=== PATIENT | female | born 1960 | race Caucasian/White ===

== ENCOUNTER → 2017-10-05 | Day surgery (SDC) | payer OTHER ==
[~2017-10-05] VITALS: Ht 157.5 cm; Wt 59.0 kg
--- NOTE | 2017-10-05 14:46 | Operative Report ---
Operative/Inv Procedure Report Surgery Date: 10/05/17 Name of Procedure: Fluoroscopic guided insertion of tunneled Port-A-Cath via right subclavian vein Pre-Operative Diagnosis: Rectal cancer Post-Operative Diagnosis: Same Estimated Blood Loss: scant Surgeon/Psychologist Counseling: Deng TAVERA,Jovanny Mcnulty Anesthesia: local monitored anesthesi Operative/Procedure Note Note: With the patient supine on the OR table, right arm tucked, head not turned, after induction of MAC sedation, the patient's right subclavian area, including the shoulder neck and contralateral chest, were prepped and draped in the usual sterile fashion. After injecting local anesthetic in the right infraclavicular area, skin, subcutaneous to the clavicle, and inferiorly where the pocket will be, the patient was repositioned to Trendelenburg. Putting your right index finger on the sternal notch and thumb pressing down lateral to the curve of the clavicle, I made a puncture through the skin with the 15 blade scalpel next to thumb. Then along that line towards the tip of your finger, advance a large- bore needle, bevel towards the feet, on a slip tip 10 mL syringe barrel flat against the deltoid, advancing to bone and then "walking" it down just under the clavicle keeping the needle flat as possible, while maintaining vacuum with the plunger, accessing the subclavian venous blood, then replacing the syringe with a wire, sliding in with minimum resistance, confirming the position with the C- arm fluoroscope, making sure the wire is traveling down along the cava towards the right side of the heart and not up or across, and no ectopy. Next I secured the wire to the drape, measured (approximately 23 cm), cut and attached the catheter to the port. Approximately 3-4 cm inferior to the stick site a 2-1/2 cm long skin incision was made with a 15 blade scalpel along Langers lines. It was deepened with cautery and a space was developed inferiorly under the subcutaneous layer. The Port-A-Cath was laid in there and secured in [address] with 2-0 Prolene through the holes in the port, the sutures were kept loose on snaps at this point. Next the catheter was tunneled up subcutaneously with a snap and brought out through the stick site next to the wire. Then the dilator only, was passed over the wire until you could feel it slide under the clavicle, then removed, then re-advanced this time with the peel-away sheath over it, while advancing simultaneously pull the dilator out and advance the sheath, eventually pulling out the dilator and wire completely. Then the catheter was put into the sheath as far as it'll go then while holding that knuckle down with DeBakey's, gently peel-away the sheath with your psychological assistant. Now the correct position of the catheter was confirmed with the fluoroscope, using a Hsieh needle and heparinized saline solution, the catheter was first aspirated then flushed with approximately 3 mL's, with minimal resistance. The patient was repositioned to neutral, after tying down the 2 Prolenes, the larger incision was closed in layers, 3-0 Vicryl deep and 4-0 subcuticular Monocryl for the skin, and one subcuticular Monocryl for the stick site. Both areas were covered with Mastisol Steri-Strips Telfa and Tegaderm. Chest x-ray was ordered to be done in the recovery room. Lap and sponge counts were correct. Wound expectancy was clean, IV fluids crystalloid, complications none, patient tolerated the procedure well was awakened and returned to the recovery room in satisfactory condition.
--- NOTE | 2017-10-05 14:59 | RADIOLOGY REPORT ---
EXAMINATION: XR PORTABLE CHEST CLINICAL INFORMATION: Status post right Port-A-Cath insertion. Rule out pneumothorax. COMPARISON: Chest x-ray dated 07/17/2017. TECHNIQUE: Portable AP semierect view of the chest was obtained. FINDINGS: EKG leads overlie the chest. There is a right subclavian Port-A-Cath in place with tip at the cavoatrial junction. The cardiomediastinal silhouette is within normal limits in size. Lungs bilaterally are symmetrically expanded and clear. No focal consolidation, effusion or pneumothorax is seen. Mild degenerative changes as seen in the right glenohumeral joint. IMPRESSION: 1. Port-A-Cath in place with tip at the cavoatrial junction. 2. No pneumothorax.
--- NOTE | 2017-10-05 21:06 | RADIOLOGY REPORT ---
EXAMINATION: FL OR PORT-A-CATH INSERTION CLINICAL INFORMATION: Right-sided Port-A-Cath placement. COMPARISON: Chest radiograph 07/17/2017. TECHNIQUE: Intraoperative fluoroscopic guidance provided for right chest port catheter placement by Dr. Vilchis. FINDINGS: Right chest port placement via the subclavian approach. Fluoroscopy Time: 0.01 minutes. Total number of images: 2. IMPRESSION: Intraoperative fluoroscopic guidance provided for right chest port placement. Refer to the operative notes for details.
== END ==
LOC: STS 02:43
DX: C20 Malignant neoplasm of rectum (principal); Z80.0 Family history of malignant neoplasm of digestive organs; K29.80 Duodenitis without bleeding; Z96.643 Presence of artificial hip joint, bilateral; Z87.891 Personal history of nicotine dependence
CPT/HCPCS: 71045; 76000; C1751; J0131; J0690; J1644; J2250

== ENCOUNTER 2017-11-03 15:23 | Inpatient (IN) | payer OTHER ==
[~2017-11-03] VITALS: Ht 157.5 cm; Wt 57.9 kg
[2017-11-03 15:49] LABS: ABSOLUTE BASOPHIL COUNT 0 /CUMM (0.0-0.2); ABSOLUTE EOSINOPHIL COUNT 0.1 /CUMM (0.0-0.7); ABSOLUTE GRANULOCYTE CT 4.8 /CUMM (1.4-6.5); ABSOLUTE LYMPH COUNT 0.6 /CUMM (1.2-3.4); ABSOLUTE MONOCYTE COUNT 1.2 /CUMM (0.10-0.60); BASOPHIL % 0.3 % (0.0-2.0); GRANULOCYTE % 71.2 % (42.2-75.2); HEMATOCRIT 35.2 % (37-47); MEAN CORPUSCULAR HGB 32.6 PG (27.0-31.0); MEAN CORPUSCULAR HGB CONC 34.8 G/DL (33.0-37.0); MEAN CORPUSCULAR VOLUME 93.6 FL (81.0-99.0); PLATELET COUNT 566 /CUMM (130-400); RBC DISTRIBUTION WIDTH 19.9 % (11.5-14.5); RED BLOOD CELL CT 3.76 /CUMM (4.20-5.40); WHITE BLOOD CELL COUNT 6.8 /CUMM (4.8-10.8)
--- NOTE | 2017-11-03 16:17 | ED GENERAL ADULT ---
History of Present Illness General Chief Complaint: General Adult Stated Complaint: SENT BY SOFÍA FOR EVAL Source: patient Exam Limitations: no limitations Vital Signs & Intake/Output Vital Signs & Intake/Output Vital Signs Date Time Temp Pulse Resp B/P B/P Pulse O2 O2 Flow FiO2 Mean Ox Delivery Rate 11/03 1533 97.4 86 16 100/68 98 Room Air Allergies Coded Allergies: sulfamethoxazole (From ) (rash 10/02/17) trimethoprim (From ) (rash 10/02/17) Triage Note: PT STATES SHE HAD COLARECTAL CA AND HAD IT REMOVED. PT WENT TO SEE DR. GORE AND HAD BW DONE AND WAS TOLD TO COME TO ED BECAUSE HER BLOOD COUNTS ARE OFF. PT DENIES FEVER/CHILLS OR BODYACHES. Triage Nurses Notes Reviewed? yes Onset: Gradual Duration: day(s): Timing: recent history HPI: 57 year old female sent to the Emergency Department for abnormal labs. She has a history of colerectal CA and is followed by Dr. Medellin. She has had an illieostomy. She denies chest pain, abdominal pain and shortness of breath. Past History Travel History Traveled to [place] past 21 day No Medical History Any Pertinent Medical History? 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 Yes Review of Systems Review of Systems Constitutional: Reports: see HPI. Denies: fever. EENTM: Reports: no symptoms. Denies: double vision, eye pain. Respiratory: Reports: no symptoms. Denies: short of breath. Cardiovascular: Reports: no symptoms. Denies: chest pain. GI: Reports: no symptoms. Denies: abdominal pain. Genitourinary: Reports: no symptoms. Musculoskeletal: Reports: no symptoms. Skin: Reports: no symptoms. Neurological/Psychological: Reports: no symptoms. Hematologic/Endocrine: Reports: no symptoms. Immunologic/Allergic: Reports: no symptoms. All Other Systems: Reviewed and Negative Physical Exam Physical Exam General Appearance: alert, awake, anxious, mild distress Head: atraumatic, normal appearance Eyes: Bilateral: normal appearance, PERRL, EOMI. Ears, Nose, Throat: normal ENT inspection Neck: normal inspection Cardiovascular: regular rate/rhythm Peripheral Pulses: 4+ radial (R), 4+ radial (L) Gastrointestinal: soft, non-tender, functioning ileostomy Back: normal range of motion Extremities: normal inspection Neurologic/Psych: awake, alert, oriented x 3 Skin: intact, normal color, warm/dry Core Measures ACS in differential dx? No CVA/TIA Diagnosis: No Sepsis Present: No Sepsis Focused Exam Completed? No Progress Differential Diagnoses I considered the following diagnoses in my evaluation of the patient: [ Hyponatremia, electrolyte derangement, anemia, common bile duct stone, metastatic disease] Plan of Care: Orders Procedure Date/time Status LACTIC ACID 11/03 1832 Active URINALYSIS 11/03 1532 Active LIPASE 11/03 1532 Complete LACTIC ACID 11/03 1532 Complete COMPREHENSIVE METABOLIC PANEL 11/03 1532 Complete CBC WITHOUT DIFFERENTIAL 11/03 1532 Complete EKG 11/03 1532 Active Laboratory Tests 11/03/17 1540: Anion Gap 21 H, Estimated GFR 18 L, BUN/Creatinine Ratio 26.3 H, Glucose 134 H, Lactic Acid 3.2 H, Calcium 9.3, Total Bilirubin 2.0 H, AST 63 H, ALT 67 H , Alkaline Phosphatase 130 H, Total Protein 7.6, Albumin 5.0, Globulin 2.6, Albumin/Globulin Ratio 1.9, Lipase 406 H, CBC w Diff NO MAN DIFF REQ, RBC 3.76 L, MCV 93.6, MCH 32.6 H, MCHC 34.8, RDW 19.9 H, MPV 7.0 L, Gran % 71.2, Lymphocytes % 9.3 L, Monocytes % 18.2 H, Eosinophils % 1.0, Basophils % 0.3, Absolute Granulocytes 4.8, Absolute Lymphocytes 0.6 L, Absolute Monocytes 1.2 H, Absolute Eosinophils 0.1, Absolute Basophils 0 Initial ED EKG: NSR Prior EKG: unchanged Departure Departure Disposition: STILL A PATIENT Condition: Stable Clinical Impression Primary Impression: ASTON (acute kidney injury) Secondary Impressions: Hyponatremia Referrals: Mignon TAVERA,Eliana Yee (PCP/Family) Departure Forms: Customer Survey General Discharge Information Admission Note Spoke With: Recinos MD,Paul Documentation of Exam: Documentation of any treatments & extenuating circumstances including Concerns Regarding Discharge (functional status, medication knowledge or non-compliance, living conditions, etc.) that warrant an admission rather than observation: [The patient needs admission for IV fluids, consider nephrology consultation, monitoring for seizures, neuro evaluations every 6 hours] Critical Care Note Critical Care Note Critical Care Time: non-applicable
--- NOTE | 2017-11-03 18:24 | History & Physical ---
Ayden TAVERA,Niurka 11/03/17 1823: General Information and HPI MD Statement: I have seen and personally examined JONATHAN HENDERSON and documented this H&P. The patient is a 57 year old F who presented with a patient stated chief complaint of [SENT BY FOR ABNORMAL LABS]. Source of Information: patient, old records, EMS Exam Limitations: no limitations History of Present Illness: Patient is a 57 YO F with PMH of locally advanced rectal adenocarcinoma s/p RT f /b anterior resection and coloanal anastomosis at [place] this august, port - A - cath August 2017, on chemotherapy (xaledo), anxiety, OA requiring bilateral hip replacement presented to [facility] after being sent by for abnormal labs. Patient started experiencing lightheadedness dizziness for the past week, more pronounced today. She couldn't recall any syncopal episodes but reports possibly had an episode during the weekend. She went to Dr. Gonzales office where she had the lab work. Due to concern of low-sodium redirected her to ER. During my interview she is A&O 3 and reports several episodes of vomiting today. She is not experiencing any episodes of increased bowel movements however stool in her ileostomy bag is very loose. She reports drinking a lot of for free water lately due to lightheadedness. She often experiences chest pain and shortness of breath during episodes of anxiety (panic attacks). She is very anxious during my interview and reports back pain since a couple of weeks for which she is taking Tylenol. She denies any abdominal pain, chest pain, shortness of breath. Allergies Septra Meds Prochlorperazine Diazepam Xaledo Family mother with pancreatic cancer father - ruptured brain aneurysm Social Quit smoking/alcohol long ago No drug abuse Surgical hip replacement anterior resection and coloanl anastomosis, ileostomy bag placement - august 10 2017 Allergies/Medications Allergies: Coded Allergies: sulfamethoxazole (From SEPTRA) (rash 10/02/17) trimethoprim (From SEPTRA) (rash 10/02/17) Home Med list Diazepam (Valium) 5 MG TABLET 1 TAB PO BIDP PRN anxiety (Reported) Prochlorperazine Maleate 10 MG TABLET 1 TAB PO Q6 PRN nausea (Reported) Compliance With Home Meds: FAIR Past History Travel History Traveled to [place] past 21 day No Medical History Neurological: NONE EENT: NONE Cardiovascular: NONE Respiratory: NONE Gastrointestinal: NONE Hepatic: NONE Renal: NONE Musculoskeletal: NONE Psychiatric: NONE Endocrine: NONE Blood Disorders: NONE Cancer(s): 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 Home Who Do You Live With? self Services at Home: None Smoking Status: Former Smoker ETOH Use: denies use Illicit Drug Use: denies illicit drug use Functional Ability ADLs Independent: dressing, eating, toileting, bathing. Ambulation: independent IADLs Independent: shopping, housework, finances, food prep, telephone, transportation , medication admin. Review of Systems Review of Systems Constitutional: Reports: see HPI. Exam & Diagnostic Data Last 24 Hrs of Vital Signs/I&O Vital Signs Date Time Temp Pulse Resp B/P B/P Pulse O2 O2 Flow FiO2 Mean Ox Delivery Rate 11/03 1748 97 Room Air 11/03 1533 97.4 86 16 100/68 98 Room Air Intake & Output 11/03 1600 11/03 0800 11/03 0000 Intake Total Output Total Balance Patient 54.431 kg Weight Weight Reported by Patient Measurement Method Physical Exam General Appearance Alert, Oriented X3, Cooperative, No Acute Distress Skin No Rashes, No Breakdown Skin Temp/Moisture Exam: Warm/Dry Sepsis Skin Exam (color): Normal for Ethnicity HEENT Atraumatic, PERRLA, EOMI Neck Supple, No JVD Cardiovascular Regular Rate, Normal S1, Normal S2 Lungs Clear to Auscultation, Normal Air Movement Abdomen Normal Bowel Sounds, Soft, No Tenderness Neurological Normal Gait, Normal Speech, Strength at 5/5 X4 Ext, Normal Tone, Sensation Intact, Cranial Nerves 3-12 NL Extremities No Clubbing, No Cyanosis, No Edema Vascular Normal Pulses Body Front and Back (Adult) 1) ileostomy bag Last 24 Hrs of Labs/Reji: Laboratory Tests 11/03/171947: Lactic Acid 1.6 11/03/171947: Anion Gap 16, Estimated GFR 22 L, BUN/Creatinine Ratio 27.4 H 11/03/17 1730: Urine Color YEL, Urine Clarity HAZY H, Urine pH 6.0, Ur Specific [place] 1.025, Urine Protein TRACE H, Urine Ketones NEG, Urine Nitrite NEG, Urine Bilirubin NEG, Urine Urobilinogen 0.2, Ur Leukocyte Esterase MOD H, Ur Microscopic SEDIMENT EXAMINED, Urine RBC RARE, Urine WBC 5-10 H, Ur Epithelial Cells FEW, Urine Bacteria FEW H, Hyaline Casts RARE H, Urine Mucus RARE, Urine Hemoglobin SMALL H, Urine Glucose NEG 11/03/17 1730: Urine Osmolality 406, Ur Random Creatinine 139.6, Ur Random Sodium < 5 L, Ur Random Potassium 37.7, Fraction Sodium Excret 0.1 11/03/17 1540: Anion Gap 21 H, Estimated GFR 18 L, BUN/Creatinine Ratio 26.3 H, Glucose 134 H, Serum Osmolality 268 L, Lactic Acid 3.2 H, Uric Acid 10.8 H, Calcium 9.3, Total Bilirubin 2.0 H, AST 63 H, ALT 67 H, Alkaline Phosphatase 130 H, Total Protein 7.6, Albumin 5.0, Globulin 2.6, Albumin/Globulin Ratio 1.9, Lipase 406 H, TSH 2.020, Free T4 1.64, CBC w Diff NO MAN DIFF REQ, RBC 3.76 L, MCV 93.6, MCH 32.6 H, MCHC 34.8, RDW 19.9 H, MPV 7.0 L, Gran % 71.2, Lymphocytes % 9.3 L, Monocytes % 18.2 H, Eosinophils % 1.0, Basophils % 0.3, Absolute Granulocytes 4.8, Absolute Lymphocytes 0.6 L, Absolute Monocytes 1.2 H, Absolute Eosinophils 0.1, Absolute Basophils 0 Microbiology 11/03 2022 URINE ROUT: Urine Culture - RECD 11/03 1833 UPPER RESP: Surveillance Culture - COLB 11/03 1833 GI: Surveillance Culture - COLB Diagnostic Data EKG Results NSR Assessment/Plan Assessment: Patient is a 57-year-old middle-aged female with significant history of locally advanced rectal carcinoma status post resection and ileostomy, currently on chemotherapy with xaledo presented to ER after found to have abnormal labs. Patient has been experiencing lightheadedness and dizziness for the past 1 week, has been drinking lots of free water. She also found to have several episodes of vomiting today. Denies any increase in output from the colostomy bag however loose stools due to no colonic rebsorbption. Vital signs and physical examination presentation unremarkable. Labs did show sodium of 112, potassium 3.8, BUN 71, creatinine 2.7, ratio 26.3. Serum was him to 68, urinalysis and 406, urine sodium less than 5. Normal TSH and free T4. Platelet count 566. Renal ultrasound unremarkable. Differential Hypovolemic hypotonic hyponatremia, with appropriate ADH elevation. Patient sustained a ASTON and lactic acidosis likely secondary to dehydration. Patient does not look dehydrated. Last lab work in July 2017 with sodium of 141, this is likely acute in onset. We will check cortisol in a.m. Problem list 1. Hypotonic hypovolemic hyponatremia -112 at presentation 2. ASTON - BUN/creatinine ratio 26 likely prerenal 3. Lactic acidosis likely secondary to dehydration 4. Elevated lipase likely from vomiting 5. History of locally advanced rectal carcinoma s/p anterior resection with ileostomy bag in situ 6. Anxiety Admit to ICU for closer monitoring of labs and neurochecks Hypotonic hypovolemic hyponatremia - asymptomatic Likely Acute from dehydration and excessive free water intake. Serum osm 268, urine osm 406, urine Na <5. received a litre of fluid bolus in ER. * repeat ICU panel Q4hrs * Neurochecks Q1hr - due to concern of CPM with overcorrection * Na correction not to exceed 8mEq in the next 24hrs * Hydrate with NS @ 100ml/hr for now * Nephrology consultation in am 2. ASTON - BUN/creatinine ratio 26 likely prerenal azotemia Cr 0.7 at baseline. * Hydration with NS @ 100ml/hr * Recheck till back to baseline * Monitor In's and Out's * Appears responding to fluid challenge 3. Lactic acidosis likely secondary to dehydration * Hydrate and trend lactic acid 4. Elevated lipase likely from vomiting * recheck in am 5. History of locally advanced rectal carcinoma s/p anterior resection with ileostomy bag in situ Patient is currently on Xaledo for around 3 cycles. would hold off for now. Monitor output from colostomy bag. 6. Anxiety Patient was on diazepam 5mg twice a day as needed. * hold off on valium * Ativan as needed. DVT prophylaxis SC heparin codestatus Full code Patient is and lives alone. 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 As Ranked By This Provider Problem List: 1. Hyponatremia 2. ASTON (acute kidney injury) Core Measures/Misc (11/23) Acute Coronary Syndrome ACS Diagnosis: No Congestive Heart Failure Congestive Heart Failure Diagnosis No Cerebrovascular Accident CVA/TIA Diagnosis: No VTE (View Protocol) VTE Risk Factors Acute Medical Illness No Mechanical VTE Prophylaxis d/t N/A MechProphylax Ordered No VTE Pharm Prophylaxis d/t NA PharmProphylax ordered Sepsis (View protocol) If YES complete Sepsis Event Note If YES complete Sepsis Event Note Paul Recinos MD 11/03/17 1231: Core Measures/Misc (11/23) Sepsis (View protocol) Sepsis Present: No If YES complete Sepsis Event Note If YES complete Sepsis Event Note Attending MD Review Statement Attending Statement Attending MD Statement: examined this patient, discuss w/resident/PA/SECURITY ESCORT, agreed w/resident/PA/SECURITY ESCORT, reviewed EMR data (avail), reviewed images, amended to note Attending Assessment/Plan: The patient is a 57 yo female with h/o anxiety, osteoarthritis-bilateral hip replacements, locally advanced colorectal ca (S/P anterior resection and coloanal anastomosis 08/24- [place]), s/p port-a-cath placement and s/p 3 rounds of chemotherapy (Xeloda - intolerant of oxaliplatin, also had XRT pre-surgery) who was sent to the ED by Dr. Gonzales who noted abnormal blood results- Jg=628, BUN/Cr 71/2.7. Bili was 2.0, AST 63, ALT 67, AP 130. Last renal function at [place] was normal. The patient does have regular bloodwork at the cancer center and has not been told of abnormalities. She initially denied any nausea/vomiting or diarrhea , however later informed resident that she has had some. No fever, chills, palpitations, dyspnea or difficulty mentating. She does note mild diffuse weakness. Physical Exam: VS: T 97.4, P 86, R 16, BP 100/68, PO 98% RA HEENT: eyes- PERRLA, EOMI manas- moist mucosa, w/o lesions Neck: no JVD, adenopathy Chest: clear, + port-a-cath Cor: RRR nl S1, S2 w/o murm Abd: BS+, soft, NT; ileostomy present Ext: no edema, pulses 2+ Neuro: alert & oriented x 3, non-focal exam (gait not tested) Labs/Tests- as above Impression/Plan: #Hyponatremia- severe. the patient is remarkably asymptomatic, however am concerned regarding low level. Assume this is acute (do not have access to recent labs) and may be related to some nausea/vomiting and diarrhea post chemo. Also related to free water ingestion (the patient admits she has been drinking water). Renal US without obstruction noted. Urine lytes c/w hypovolemic hyponatremia. Plan: Admit to ICU - IV NS being given in ED. Calculate total body Na deficit and correct. Re-check Na in 4 hours (close monitoring) to avoid overcorrection. May need nephrology consult in morning if not resolving. Consider dry CT if Na not correcting. #ASTON- in patient with prior normal Cr here. Most likely secondary to volume depletion/hypovolemia. Plan: IV hydration- begin SUNIL Follow Cr with hydration. If not decreasing, obtain Nephrology consult. #Colorectal Cancer- ?final staging result. Prior PET/CT in 02/22 does not show any mets- only local involvement. Unclear if any nodes were positive after surgery (the patient is unaware). Has been on Adjuvant therapy with 5FU and Xeloda. Plan: Will obtain records from [facility]. Chemo as per Oncology. #Gastroenteritis- only mild symptoms, however suspect sufficient to cause hypovolemia/hyponatremia. Later admitted to several episodes of vomiting. Most c /w chemotherapy induced GI symptoms. Infectious still possible. Plan: Will follow symptoms. #Elevated Lipase- no significant abdominal discomfort. Plan: Repeat lipase and follow abdominal symptoms. Consider imaging if persistent elevation. #Anxiety- does describe some panic when she is ill. Plan:
--- NOTE | 2017-11-03 18:24 | ULTRASOUND REPORT ---
EXAMINATION: US RETROPERITONEAL COMPLETE (RENAL) CLINICAL INFORMATION: Dizziness and lightheadedness. Acute kidney injury.. COMPARISON: CT abdomen pelvis 06/12/2017 TECHNIQUE: Real-time imaging of the kidneys and bladder. FINDINGS: RIGHT KIDNEY: 8.6 x 4.8 x 5.4 cm (SAG x AP x TRV). The kidney is normal in size, contour, and echogenicity. Renal cortical thickness is normal. No calculi or focal parenchymal lesions. No hydronephrosis. LEFT KIDNEY: 10.7 x 6.2 x 5.6 cm (SAG x AP x TRV). The kidney is normal in size, contour, and echogenicity. Renal cortical thickness is normal. No calculi or focal parenchymal lesions. No hydronephrosis. BLADDER: The bladder is decompressed and therefore not accurately evaluated. Bilateral ureteral jets are demonstrated. IMPRESSION: Unremarkable sonographic imaging of the kidneys. No renal calculi or hydronephrosis bilaterally.
[2017-11-03] MEDS ORDERED: PROCHLORPERAZIN10 MG PO (21:03)
[2017-11-03] MEDS ORDERED: VALIUM5 M2 PO (21:04)
[2017-11-04] VITALS: BP 100/70
[2017-11-04 03:44] LABS: ABSOLUTE BASOPHIL COUNT 0 /CUMM (0.0-0.2); ABSOLUTE EOSINOPHIL COUNT 0.2 /CUMM (0.0-0.7); ABSOLUTE GRANULOCYTE CT 3.2 /CUMM (1.4-6.5); ABSOLUTE LYMPH COUNT 0.6 /CUMM (1.2-3.4); ABSOLUTE MONOCYTE COUNT 1.2 /CUMM (0.10-0.60); BASOPHIL % 0.2 % (0.0-2.0); GRANULOCYTE % 62.2 % (42.2-75.2); MEAN CORPUSCULAR HGB 33.8 PG (27.0-31.0); MEAN CORPUSCULAR HGB CONC 35.9 G/DL (33.0-37.0); MEAN CORPUSCULAR VOLUME 94.3 FL (81.0-99.0); MEAN PLATELET VOLUME 7.4 FL (7.4-10.4); RED BLOOD CELL CT 3.03 /CUMM (4.20-5.40); WHITE BLOOD CELL COUNT 5.2 /CUMM (4.8-10.8)
[2017-11-04 04:09] LABS: HEMATOCRIT 28.5 % (37-47)
[2017-11-04 04:25] LABS: PLATELET COUNT 383 /CUMM (130-400)
--- NOTE | 2017-11-04 07:06 | Cons- Oncology ---
General Information and HPI Consulting Request Date of Consult: 11/04/17 Requested By: Paul Recinos MD History of Present Illness: 57-year-old woman well known to me with rectal cancer now admitted with marked metabolic abnormalities. Patient has known rectal cancer. She was treated initially with Xeloda and radiation therapy followed by surgery. She was begun on oxaliplatin plus Xeloda but was intolerant of oxaliplatin. She has now been treated with Xeloda only. Patient was in my office was yesterday feeling well. She had occasional nausea and diarrhea, denying significant abdominal pain and fever chills or sweats. She denied focal neurologic deficit. Laboratory returned with marked abnormalities and the patient was referred to the emergency room. Today she is feeling much improved denying nausea vomiting diarrhea or abdominal pain. Allergies/Medications Allergies: Coded Allergies: sulfamethoxazole (From ) (rash 10/02/17) trimethoprim (From ) (rash 10/02/17) Home Med List: Diazepam (Valium) 5 MG TABLET 1 TAB PO BIDP PRN anxiety (Reported) Prochlorperazine Maleate 10 MG TABLET 1 TAB PO Q6 PRN nausea (Reported) Current Medications: Current Medications Sig/Riana Start time Last Medication Dose Route Stop Time Status Admin Acetaminophen 650 MG Q6P PRN 11/03 1815 AC PO Acetaminophen 1,000 MG Q6P PRN 11/03 1815 AC 11/04 IV 0211 Desmopressin Acetate 1 MCG ONCE ONE 11/04 0045 CAN SC 11/04 0046 Dextrose/Water 1,000 ML Q6H 11/04 0100 AC 11/04 IV 11/04 1259 0053 Heparin Sodium 5,000 UNIT Q8 11/03 2242 AC 11/04 (Porcine) SC 0521 Lorazepam 0 .STK-MED ONE 11/03 1916 DC PO Lorazepam 0.5 MG ONE ONE 11/03 1915 DC 11/03 PO 11/03 191 1957 Magnesium Chloride 64 MG ONCE ONE 11/03 2345 DC 11/04 PO 11/03 2346 0145 Potassium Chloride 60 MEQ ONCE ONE 11/04 0500 DC 11/04 PO 11/04 0501 0521 Sodium Chloride 1,000 ML Q6H 11/03 1900 DC 11/03 IV 1918 Sodium Chloride 1,000 ML BOLUS ONE 11/03 1730 DC 11/03 IV 11/03 1829 1811 Review of Systems Review of Systems: Patient denied headaches or dizziness. Patient denied chest pain shortness breath cough or hemoptysis. She denied dysuria or hematuria. The patient denied bone aches or focal neurologic deficit. 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 Home Who Do You Live With? self Services at Home: None Smoking Status: Former Smoker ETOH Use: denies use Illicit Drug Use: denies illicit drug use Functional Ability ADLs Independent: dressing, eating, toileting, bathing. Ambulation: independent IADLs Independent: shopping, housework, finances, food prep, telephone, transportation , medication admin. Exam & Diagnostic Data Vital Signs and I&O Vital Signs Date Time Temp Pulse Resp B/P B/P Pulse O2 O2 Flow FiO2 Mean Ox Delivery Rate 11/04 0400 98 Room Air 11/04 0000 97.7 73 29 100/70 98 Room Air 11/03 2350 98 Room Air 11/03 2054 97.6 80 18 106/67 99 Room Air 11/03 1954 97.5 78 17 108/73 99 Room Air 11/03 1748 97 Room Air 11/03 1732 84 17 102/72 97 Room Air 11/03 1533 97.4 86 16 100/68 98 Room Air Intake & Output 11/04 0800 11/04 0000 11/03 1600 Intake Total 1284 1740 Output Total 1400 1100 Balance -116 640 Intake, IV 804 1500 Intake, Oral 480 240 Output, Stool 600 300 Output, Urine 800 800 Patient 128 lb 120 lb Weight Weight Bed scale Reported by Patient Measurement Method Gen.: in NAD ENT: Sclera anicteric Chest: Normal respiratory effort, clear breath sounds Cor: RRR, no extra sounds Abdomen: Soft, bowel sounds present, no tenderness, no rebound Extremities: Without clubbing, cyanosis, or edema Neurology: Alert and oriented 3, no gross deficit Skin: No rashes Last 48 Hours of Lab Results: Laboratory Tests 11/04 11/04 11/04 0600 0300 0300 Chemistry Sodium (137 - 145 mmol/L) 120 L 122 L Potassium (3.5 - 5.1 mmol/L) 3.1 L Chloride (98 - 107 mmol/L) 84 L Carbon Dioxide (22 - 30 mmol/L) 24 Anion Gap (5 - 16) 13 BUN (7 - 17 mg/dL) 55 H Creatinine (0.5 - 1.0 mg/dL) 1.9 H Estimated GFR (>60 ml/min) 27 L Glucose (65 - 99 mg/dL) 111 H Uric Acid (2.5 - 6.2 mg/dL) 8.4 H Calcium (8.4 - 10.2 mg/dL) 8.4 Phosphorus (2.5 - 4.5 mg/dL) 5.4 H Magnesium (1.6 - 2.3 mg/dL) 1.8 Total Bilirubin (0.2 - 1.3 mg/dL) 1.7 H AST (14 - 36 U/L) 49 H ALT (9 - 52 U/L) 57 H Albumin (3.5 - 5.0 g/dL) 3.6 Triglycerides (<150 mg/dL) 237 H Cholesterol (<200 MG/DL) 153 LDL Cholesterol, Calc (65 - 129 mg/dL) 56 L HDL Cholesterol (40 - 60 mg/dL) 50 Cholesterol/HDL Ratio (0.00 - 4.23 %) 3 Cortisol AM Sample (4.46 - 22.7 ug/dL) 16.2 Hematology CBC w Diff MAN DIFF ORDERED WBC (4.8 - 10.8 /CUMM) 5.2 RBC (4.20 - 5.40 /CUMM) 3.03 L Hgb (12.0 - 16.0 G/DL) 10.3 L Hct (37 - 47 %) 28.5 L MCV (81.0 - 99.0 FL) 94.3 MCH (27.0 - 31.0 PG) 33.8 H MCHC (33.0 - 37.0 G/DL) 35.9 RDW (11.5 - 14.5 %) 19.0 H Plt Count (130 - 400 /CUMM) 383 MPV (7.4 - 10.4 FL) 7.4 Gran % (42.2 - 75.2 %) 62.2 Lymphocytes % (20.5 - 51.1 %) 10.8 L Monocytes % (1.7 - 9.3 %) 23.8 H Eosinophils % (0 - 5 %) 3.0 Basophils % (0.0 - 2.0 %) 0.2 Absolute Granulocytes (1.4 - 6.5 /CUMM) 3.2 Segmented Neutrophils (42.2 - 75.2 %) 59 Absolute Lymphocytes (1.2 - 3.4 /CUMM) 0.6 L Lymphocytes (20.5 - 51.1 %) 15 L Monocytes (1.7 - 9.3 %) 22 H Absolute Monocytes (0.10 - 0.60 /CUMM) 1.2 H Eosinophils (0 - 5.0 %) 4 Absolute Eosinophils (0.0 - 0.7 /CUMM) 0.2 Absolute Basophils (0.0 - 0.2 /CUMM) 0 Platelet Estimate (ADEQUATE) INCREASED Normochromic RBCs VERIFIED Anisocytosis + 11/03 11/03 11/03 2330 1948 1948 Chemistry Sodium (137 - 145 mmol/L) 123 L 115 *L Potassium (3.5 - 5.1 mmol/L) 3.0 L 3.5 Chloride (98 - 107 mmol/L) 86 L 83 L Carbon Dioxide (22 - 30 mmol/L) 21 L 16 L Anion Gap (5 - 16) 16 16 BUN (7 - 17 mg/dL) 58 H 63 H Creatinine (0.5 - 1.0 mg/dL) 2.1 H 2.3 H Estimated GFR (>60 ml/min) 24 L 22 L BUN/Creatinine Ratio (7 - 25 %) 27.4 H Glucose (65 - 99 mg/dL) 96 Lactic Acid (0.7 - 2.1 mmol/L) 1.6 Calcium (8.4 - 10.2 mg/dL) 8.8 Phosphorus (2.5 - 4.5 mg/dL) 4.8 H Magnesium (1.6 - 2.3 mg/dL) 1.8 1.6 Total Bilirubin (0.2 - 1.3 mg/dL) 1.9 H AST (14 - 36 U/L) 55 H ALT (9 - 52 U/L) 57 H Albumin (3.5 - 5.0 g/dL) 3.8 11/03 11/03 1730 1730 Urines Urine Color (YEL,AMB,STR) YEL Urine Clarity (CLEAR) HAZY H Urine pH (5.0 - 8.0) 6.0 Ur Specific [place] (1.001 - 1.035) 1.025 Urine Protein (NEG,<30 MG/DL) TRACE H Urine Ketones (NEG) NEG Urine Nitrite (NEG) NEG Urine Bilirubin (NEG) NEG Urine Urobilinogen (0.1 - 1.0 EU/dl) 0.2 Ur Leukocyte Esterase (NEG) MOD H Ur Microscopic SEDIMENT EXAMINED Urine RBC (0 - 5 /HPF) RARE Urine WBC (0 - 2 /HPF) 5-10 H Ur Epithelial Cells (NONE,FEW) FEW Urine Bacteria (NEG/NONE) FEW H Hyaline Casts (0/LPF) RARE H Urine Mucus (FEW,NONE) RARE Urine Hemoglobin (NEG) SMALL H Urine Osmolality (300 - 1000 MOSM/KG) 406 Ur Random Creatinine (mg/dL) 139.6 Ur Random Sodium (30 - 90 mmol/L) < 5 L Ur Random Potassium (mmol/L) 37.7 Fraction Sodium Excret (<1% %) 0.1 Urine Glucose (N MG/DL) NEG 11/03 1540 Chemistry Sodium (137 - 145 mmol/L) 112 *L Potassium (3.5 - 5.1 mmol/L) 3.8 Chloride (98 - 107 mmol/L) 77 L Carbon Dioxide (22 - 30 mmol/L) 14 L Anion Gap (5 - 16) 21 H BUN (7 - 17 mg/dL) 71 H Creatinine (0.5 - 1.0 mg/dL) 2.7 H Estimated GFR (>60 ml/min) 18 L BUN/Creatinine Ratio (7 - 25 %) 26.3 H Glucose (65 - 99 mg/dL) 134 H Serum Osmolality (285 - 295 MOSM/KG) 268 L Lactic Acid (0.7 - 2.1 mmol/L) 3.2 H Uric Acid (2.5 - 6.2 mg/dL) 10.8 H Calcium (8.4 - 10.2 mg/dL) 9.3 Total Bilirubin (0.2 - 1.3 mg/dL) 2.0 H AST (14 - 36 U/L) 63 H ALT (9 - 52 U/L) 67 H Alkaline Phosphatase (<127 U/L) 130 H Total Protein (6.3 - 8.2 g/dL) 7.6 Albumin (3.5 - 5.0 g/dL) 5.0 Globulin (1.9 - 4.2 gm/dL) 2.6 Albumin/Globulin Ratio (1.1 - 2.2 %) 1.9 Lipase (23 - 300 U/L) 406 H TSH (0.270 - 4.200 uIU/mL) 2.020 Free T4 (0.64 - 1.79 ng/dL) 1.64 Hematology CBC w Diff NO MAN DIFF REQ WBC (4.8 - 10.8 /CUMM) 6.8 RBC (4.20 - 5.40 /CUMM) 3.76 L Hgb (12.0 - 16.0 G/DL) 12.3 Hct (37 - 47 %) 35.2 L MCV (81.0 - 99.0 FL) 93.6 MCH (27.0 - 31.0 PG) 32.6 H MCHC (33.0 - 37.0 G/DL) 34.8 RDW (11.5 - 14.5 %) 19.9 H Plt Count (130 - 400 /CUMM) 566 H MPV (7.4 - 10.4 FL) 7.0 L Gran % (42.2 - 75.2 %) 71.2 Lymphocytes % (20.5 - 51.1 %) 9.3 L Monocytes % (1.7 - 9.3 %) 18.2 H Eosinophils % (0 - 5 %) 1.0 Basophils % (0.0 - 2.0 %) 0.3 Absolute Granulocytes (1.4 - 6.5 /CUMM) 4.8 Absolute Lymphocytes (1.2 - 3.4 /CUMM) 0.6 L Absolute Monocytes (0.10 - 0.60 /CUMM) 1.2 H Absolute Eosinophils (0.0 - 0.7 /CUMM) 0.1 Absolute Basophils (0.0 - 0.2 /CUMM) 0 Imaging/Other Studies: Renal ultrasound-no obstruction Assessment/Plan Assessment: 1. Metabolic abnormalities-profound hyponatremia and renal insufficiency. Data suggest dehydration with possible water intoxication. With normal saline the patient has demonstrated an improvement in both her sodium and creatinine. Recommend- Continue current interventions 2. Rectal cancer-no signs or symptoms of recurrent cancer 3. Elevated lipase-clinical scenario does not suggest active pancreatitis Recommend-repeat lipase, obtain amylase Recommendations: .. Consult Acknowledgment - Thank you for your consult request.
[2017-11-04 08:00] VITALS: BP 104/76
--- NOTE | 2017-11-04 08:18 | Admission Certification ---
Admission Certification Certification Statement - As attending physician, I certify that at the time of - admission, based on clinical presentation, severity of - symptoms, need for further diagnostic testing and - therapeutic interventions, and risk of adverse outcomes - without in-hospital treatment, in my clinical assessment, - this patient requires an acute hospital stay for a minimum - of two nights or longer. I have also considered psychsocial - factors such as support system, advanced age, financial - issues, cognitive issues, and failed out-patient treatments, - past re-admission history, safety of patient, and lack of - compliance as applicable. Specific rationale supporting this admission is: The patient presents in ED with severe hyponatremia and ASTON and appears to be related to volume depletion/water ingestion post chemotherapy for colorectal cancer. Needs admit to ICU for treatment and close monitoring of sodium and renal function (q4h). NS infusion. Nephrology consult in morning, renal US done.
--- NOTE | 2017-11-04 09:48 | PN- CRCU ---
Subjective HPI/Critical Care Issues: Seen and examined today This is a lady with rectal ca (initial neoadj chemo/xrt with xeloda and surg initially. NOw on chemo on xeloda. S/p Surg ant resection and now with ileostomy ) Here with sig hyponatremia and dehydration with increase out put from her ileostomy She is now fluid resusitated and her hyponatremia is better (may be getting overcorrected however) REnal onboard No abd pain today Feels better Less anxious Objective Current Medications: Current Medications Sig/Riana Start time Last Medication Dose Route Stop Time Status Admin Acetaminophen 650 MG Q6P PRN 11/03 1815 AC PO Acetaminophen 1,000 MG Q6P PRN 11/03 1815 AC 11/04 IV 0211 Desmopressin Acetate 1 MCG ONCE ONE 11/04 0045 CAN SC 11/04 0046 Dextrose/Water 1,000 ML Q6H 11/04 0100 AC 11/04 IV 11/04 1259 0715 Heparin Sodium 5,000 UNIT Q8 11/03 2242 AC 11/04 (Porcine) SC 0521 Lorazepam 0 .STK-MED ONE 11/03 191 DC PO Lorazepam 0.5 MG ONE ONE 11/03 1915 DC 11/03 PO 11/03 1916 1957 Magnesium Chloride 64 MG ONCE ONE 11/03 2345 DC 11/04 PO 11/03 2346 0145 Potassium Chloride 60 MEQ ONCE ONE 11/04 0500 DC 11/04 PO 11/04 0501 0521 Sodium Chloride 1,000 ML Q6H 11/03 1900 DC 11/03 IV 1918 Sodium Chloride 1,000 ML BOLUS ONE 11/03 1730 DC 11/03 IV 11/03 1829 1811 Vital Signs & I&O Last 24 Hrs of Vitals and I&O: Vital Signs Date Time Temp Pulse Resp B/P B/P Pulse O2 O2 Flow FiO2 Mean Ox Delivery Rate 11/04 0400 98 Room Air 11/04 0000 97.7 73 29 100/70 98 Room Air 11/030 98 Room Air 11/03 2053 97.6 80 18 106/67 99 Room Air 11/03 1953 97.5 78 17 108/73 99 Room Air 11/03 1748 97 Room Air 11/03 1732 84 17 102/72 97 Room Air 11/03 1533 97.4 86 16 100/68 98 Room Air Intake & Output 11/04 1600 11/04 0800 11/04 0000 Intake Total 1284 1740 Output Total 1400 1100 Balance -116 640 Intake, IV 804 1500 Intake, Oral 480 240 Output, Stool 600 300 Output, Urine 800 800 Patient 128 lb Weight Weight Bed scale Measurement Method Laboratory Tests 11/04 11/04 11/04 0600 0300 0300 Chemistry Sodium (137 - 145 mmol/L) 120 L 122 L Potassium (3.5 - 5.1 mmol/L) 3.1 L Chloride (98 - 107 mmol/L) 84 L Carbon Dioxide (22 - 30 mmol/L) 24 Anion Gap (5 - 16) 13 BUN (7 - 17 mg/dL) 55 H Creatinine (0.5 - 1.0 mg/dL) 1.9 H Estimated GFR (>60 ml/min) 27 L Glucose (65 - 99 mg/dL) 111 H Uric Acid (2.5 - 6.2 mg/dL) 8.4 H Calcium (8.4 - 10.2 mg/dL) 8.4 Phosphorus (2.5 - 4.5 mg/dL) 5.4 H Magnesium (1.6 - 2.3 mg/dL) 1.8 Total Bilirubin (0.2 - 1.3 mg/dL) 1.7 H AST (14 - 36 U/L) 49 H ALT (9 - 52 U/L) 57 H Albumin (3.5 - 5.0 g/dL) 3.6 Triglycerides (<150 mg/dL) 237 H Cholesterol (<200 MG/DL) 153 LDL Cholesterol, Calc (65 - 129 mg/dL) 56 L HDL Cholesterol (40 - 60 mg/dL) 50 Cholesterol/HDL Ratio (0.00 - 4.23 %) 3 Cortisol AM Sample (4.46 - 22.7 ug/dL) 16.2 Hematology CBC w Diff MAN DIFF ORDERED WBC (4.8 - 10.8 /CUMM) 5.2 RBC (4.20 - 5.40 /CUMM) 3.03 L Hgb (12.0 - 16.0 G/DL) 10.3 L Hct (37 - 47 %) 28.5 L MCV (81.0 - 99.0 FL) 94.3 MCH (27.0 - 31.0 PG) 33.8 H MCHC (33.0 - 37.0 G/DL) 35.9 RDW (11.5 - 14.5 %) 19.0 H Plt Count (130 - 400 /CUMM) 383 MPV (7.4 - 10.4 FL) 7.4 Gran % (42.2 - 75.2 %) 62.2 Lymphocytes % (20.5 - 51.1 %) 10.8 L Monocytes % (1.7 - 9.3 %) 23.8 H Eosinophils % (0 - 5 %) 3.0 Basophils % (0.0 - 2.0 %) 0.2 Absolute Granulocytes (1.4 - 6.5 /CUMM) 3.2 Segmented Neutrophils (42.2 - 75.2 %) 59 Absolute Lymphocytes (1.2 - 3.4 /CUMM) 0.6 L Lymphocytes (20.5 - 51.1 %) 15 L Monocytes (1.7 - 9.3 %) 22 H Absolute Monocytes (0.10 - 0.60 /CUMM) 1.2 H Eosinophils (0 - 5.0 %) 4 Absolute Eosinophils (0.0 - 0.7 /CUMM) 0.2 Absolute Basophils (0.0 - 0.2 /CUMM) 0 Platelet Estimate (ADEQUATE) INCREASED Normochromic RBCs VERIFIED Anisocytosis 1+ 11/03 11/03 11/03 2330 1948 1948 Chemistry Sodium (137 - 145 mmol/L) 123 L 115 *L Potassium (3.5 - 5.1 mmol/L) 3.0 L 3.5 Chloride (98 - 107 mmol/L) 86 L 83 L Carbon Dioxide (22 - 30 mmol/L) 21 L 16 L Anion Gap (5 - 16) 16 16 BUN (7 - 17 mg/dL) 58 H 63 H Creatinine (0.5 - 1.0 mg/dL) 2.1 H 2.3 H Estimated GFR (>60 ml/min) 24 L 22 L BUN/Creatinine Ratio (7 - 25 %) 27.4 H Glucose (65 - 99 mg/dL) 96 Lactic Acid (0.7 - 2.1 mmol/L) 1.6 Calcium (8.4 - 10.2 mg/dL) 8.8 Phosphorus (2.5 - 4.5 mg/dL) 4.8 H Magnesium (1.6 - 2.3 mg/dL) 1.8 1.6 Total Bilirubin (0.2 - 1.3 mg/dL) 1.9 H AST (14 - 36 U/L) 55 H ALT (9 - 52 U/L) 57 H Albumin (3.5 - 5.0 g/dL) 3.8 11/03 11/03 1730 1730 Urines Urine Color (YEL,AMB,STR) YEL Urine Clarity (CLEAR) HAZY H Urine pH (5.0 - 8.0) 6.0 Ur Specific [place] (1.001 - 1.035) 1.025 Urine Protein (NEG,<30 MG/DL) TRACE H Urine Ketones (NEG) NEG Urine Nitrite (NEG) NEG Urine Bilirubin (NEG) NEG Urine Urobilinogen (0.1 - 1.0 EU/dl) 0.2 Ur Leukocyte Esterase (NEG) MOD H Ur Microscopic SEDIMENT EXAMINED Urine RBC (0 - 5 /HPF) RARE Urine WBC (0 - 2 /HPF) 5-10 H Ur Epithelial Cells (NONE,FEW) FEW Urine Bacteria (NEG/NONE) FEW H Hyaline Casts (0/LPF) RARE H Urine Mucus (FEW,NONE) RARE Urine Hemoglobin (NEG) SMALL H Urine Osmolality (300 - 1000 MOSM/KG) 406 Ur Random Creatinine (mg/dL) 139.6 Ur Random Sodium (30 - 90 mmol/L) < 5 L Ur Random Potassium (mmol/L) 37.7 Fraction Sodium Excret (<1% %) 0.1 Urine Glucose (N MG/DL) NEG 11/03 1540 Chemistry Sodium (137 - 145 mmol/L) 112 *L Potassium (3.5 - 5.1 mmol/L) 3.8 Chloride (98 - 107 mmol/L) 77 L Carbon Dioxide (22 - 30 mmol/L) 14 L Anion Gap (5 - 16) 21 H BUN (7 - 17 mg/dL) 71 H Creatinine (0.5 - 1.0 mg/dL) 2.7 H Estimated GFR (>60 ml/min) 18 L BUN/Creatinine Ratio (7 - 25 %) 26.3 H Glucose (65 - 99 mg/dL) 134 H Serum Osmolality (285 - 295 MOSM/KG) 268 L Lactic Acid (0.7 - 2.1 mmol/L) 3.2 H Uric Acid (2.5 - 6.2 mg/dL) 10.8 H Calcium (8.4 - 10.2 mg/dL) 9.3 Total Bilirubin (0.2 - 1.3 mg/dL) 2.0 H AST (14 - 36 U/L) 63 H ALT (9 - 52 U/L) 67 H Alkaline Phosphatase (<127 U/L) 130 H Total Protein (6.3 - 8.2 g/dL) 7.6 Albumin (3.5 - 5.0 g/dL) 5.0 Globulin (1.9 - 4.2 gm/dL) 2.6 Albumin/Globulin Ratio (1.1 - 2.2 %) 1.9 Lipase (23 - 300 U/L) 406 H TSH (0.270 - 4.200 uIU/mL) 2.020 Free T4 (0.64 - 1.79 ng/dL) 1.64 Hematology CBC w Diff NO MAN DIFF REQ WBC (4.8 - 10.8 /CUMM) 6.8 RBC (4.20 - 5.40 /CUMM) 3.76 L Hgb (12.0 - 16.0 G/DL) 12.3 Hct (37 - 47 %) 35.2 L MCV (81.0 - 99.0 FL) 93.6 MCH (27.0 - 31.0 PG) 32.6 H MCHC (33.0 - 37.0 G/DL) 34.8 RDW (11.5 - 14.5 %) 19.9 H Plt Count (130 - 400 /CUMM) 566 H MPV (7.4 - 10.4 FL) 7.0 L Gran % (42.2 - 75.2 %) 71.2 Lymphocytes % (20.5 - 51.1 %) 9.3 L Monocytes % (1.7 - 9.3 %) 18.2 H Eosinophils % (0 - 5 %) 1.0 Basophils % (0.0 - 2.0 %) 0.3 Absolute Granulocytes (1.4 - 6.5 /CUMM) 4.8 Absolute Lymphocytes (1.2 - 3.4 /CUMM) 0.6 L Absolute Monocytes (0.10 - 0.60 /CUMM) 1.2 H Absolute Eosinophils (0.0 - 0.7 /CUMM) 0.1 Absolute Basophils (0.0 - 0.2 /CUMM) 0 Microbiology Date/Time Procedure - Status Source Growth 11/03 2299 Surveillance Culture - RECD UPPER RESP 11/03 2299 Surveillance Culture - RECD GI 11/03 2022 Urine Culture - RECD URINE ROUT Impression/Plan Impression/Plan Impression/Plan: General Appearance Alert, Oriented X3, Cooperative, No Acute Distress Skin No Rashes, No Breakdown Skin Temp/Moisture Exam: Warm/Dry Sepsis Skin Exam (color): Normal for Ethnicity HEENT Atraumatic, PERRLA, EOMI Neck Supple, No JVD Cardiovascular Regular Rate, Normal S1, Normal S2 Lungs Clear to Auscultation, Normal Air Movement Abdomen Normal Bowel Sounds, Soft, No Tenderness Ileostomy bag in place Neurological Normal Gait, Normal Speech, Strength at 5/5 X4 Ext, Normal Tone, Sensation Intact, Cranial Nerves 3-12 NL Extremities No Clubbing, No Cyanosis, No Edema Vascular Normal Pulses Patient is a 57-year-old middle-aged female with significant history of locally advanced rectal carcinoma status post resection and ileostomy, currently on chemotherapy with xaledo presented to ER after found to have abnormal labs. Patient has been experiencing lightheadedness and dizziness for the past 1 week, has been drinking lots of free water. She also found to have several episodes of vomiting yesterday now resolved Issues include * Profound Hypotonic, hypovolemic hyponatremia now slowly resolving after Normal saline and now appears euvolumic (sodium may have improved quickly) * Hypokalemia / mild hypomag * ASTON improving * Altered LFTs improving, no evidence of biliary sepsis or obstructive physiology * Elevated lipase without abd pain * Ongoing rx for Locally advanced rectal ca with neoad chemo/xrt, followed by Ant resection, with ileostomy, now on xeloda * Anxiety PLAN Cont rx for hyponatremia per renal (Discussed with Dr Moon) DDAVP per renal Ultrasound of liver and pancreas Cont to watch sodium frequently Ok to dc salazar if not today in am Replace potassium Fluid restriction Prn lorazepam COnt Heparin sub Pt to remain in icu Critically ill still tts 38 mins
--- NOTE | 2017-11-04 09:54 | Cons- Nephrology ---
General Information and HPI Consulting Request Date of Consult: 11/04/17 Requested By: Paul Recinos MD Reason for Consult: Hyponatremia History of Present Illness: 57 yo female with locally advanced rectal adenocarcinoma s/p resection, colsotmy August 2017. SHe has been on Xaledo for chemotherapy. Over past 5 days she has had incresing liquid stool output. She began feeling dizzy, lightheaded. She increased her water intake, vomited several times yesterday. Labs as outpatient yesterday revealed hyponatremia and renal insufficiency, she was sen to the ED for evaluation. In ED serum sodium was 112, creatinine was 2.7, bicarb 14 with AG of 21, lactic acid of 3.2, Intial BP was 100/68. Urine chemistries revealed a sodium of less than 5, Urine osm of 406. She was given NS IV and sodum quickly increased to 123 at which time IV sale was switched to D5W at 150 cc/hr. Serum bicargonate returned to normal, creatinine down to 1.9. FH: negative for kidney disease. Allergies/Medications Allergies: Coded Allergies: sulfamethoxazole (From ) (rash 10/02/17) trimethoprim (From ) (rash 10/02/17) Home Med List: Diazepam (Valium) 5 MG TABLET 1 TAB PO BIDP PRN anxiety (Reported) Prochlorperazine Maleate 10 MG TABLET 1 TAB PO Q6 PRN nausea (Reported) Current Medications: Current Medications Sig/Riana Start time Last Medication Dose Route Stop Time Status Admin Acetaminophen 650 MG Q6P PRN 11/03 181 AC PO Acetaminophen 1,000 MG Q6P PRN 11/03 1815 AC 11/04 IV 0211 Desmopressin Acetate 1 MCG ONCE ONE 11/04 0045 CAN SC 11/04 0046 Dextrose/Water 1,000 ML Q6H 11/04 0100 AC 11/04 IV 11/04 1259 0715 Heparin Sodium 5,000 UNIT Q8 11/03 2242 AC 11/04 (Porcine) SC 0521 Lorazepam 0 .STK-MED ONE 11/03 1916 DC PO Lorazepam 0.5 MG ONE 11/03 DC 11/03 PO 11/04 1915 195 Magnesium Chloride 64 MG ONCE ONE 11/03 2345 DC 11/04 PO 11/03 2345 0145 Potassium Chloride 60 MEQ ONCE ONE 11/04 0500 DC 11/04 PO 11/04 0501 0521 Sodium Chloride 1,000 ML Q6H 11/03 1900 DC 11/03 IV 1918 Sodium Chloride 1,000 ML BOLUS ONE 11/03 1730 DC 11/03 IV 11/03 1829 1811 Review of Systems Review of Systems: Negative except as noted above. 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 Home Who Do You Live With? self Services at Home: None Smoking Status: Former Smoker ETOH Use: denies use Illicit Drug Use: denies illicit drug use Functional Ability ADLs Independent: dressing, eating, toileting, bathing. Ambulation: independent IADLs Independent: shopping, housework, finances, food prep, telephone, transportation , medication admin. Exam & Diagnostic Data Vital Signs and I&O Vital Signs Date Time Temp Pulse Resp B/P B/P Pulse O2 O2 Flow FiO2 Mean Ox Delivery Rate 11/04 0400 98 Room Air 11/04 0000 97.7 73 29 100/70 98 Room Air 11/03 2350 98 Room Air 11/03 2054 97.6 80 18 106/67 99 Room Air 11/03 1954 97.5 78 17 108/73 99 Room Air 11/03 1748 97 Room Air 11/03 1732 84 17 102/72 97 Room Air 11/03 1533 97.4 86 16 100/68 98 Room Air Intake & Output 11/04 1600 11/04 0400 11/03 1600 11/03 0400 11/02 1600 11/02 0400 Intake Total 1284 1740 Output Total 1400 1100 Balance -116 640 Intake, IV 804 1500 Intake, Oral 480 240 Output, Stool 600 300 Output, Urine 800 800 Patient 128 lb 120 lb Weight Weight Bed scale Reported by Patient Measurement Method Physical Exam: NAD VS as above. Eyes: anicteric, PERRLA Neck: no mass or thyromegally Nodes: negative cervical/inguinal Skin: no rash or induration CV: no rub or murmur Lungs: clear P&A Abd: non-tender, no organomegaly, BS positive, liquid stool from colostomy Exts: no edema, 1+ pedal pulses Neuro: A&O, CN intact, no asterixis. Results Imaging/Other Studies: Renal US with no obstruction Assessment/Plan Assessment/Recommendations Assessment: Hyponatremia secondary to volume loss and replacement with free water. ASTON also due to volume loss as correcting with volume expansion. Serum sodium has already increased by 10 meq so patient appropriately switched to D5W and sodium back down slightlly. Currently producing very clear urine suggestive of low SG, ie clearing her water excess. Recommendations: Plan is to keep sodium correction at no more than 8 meq/24hours. If you can lock her at that with D5W infusion, ie keep her at 120 for another 12 hours, then continue current rx. If sodium continues upwards, rather than administrating huge amount of D5W could give 1 mcg of DDAVP, which will essentially concentrate urine for 12-24 hours, then sodium will start to increase again. Need to watch volume status as well and if producing a large amount of stool may need to give some 1/2 NS to compensate for salt loss. No further w/u for ASTON unless fails to resolve with correction of volume deficit.
--- NOTE | 2017-11-04 10:34 | PN- Nephrology ---
Assessment/Plan Nephrology Assessment: Creatinine stable but very low GFR. If he is going to do home dialysis he should have tenckhoff placed very soon. Suggestion: Discharge with f/u with Dr. 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 Keep on metolazone dailyl, toresemide 80 mg bid. Subjective Subjective: Patient with no new complaints today, states he is going home. Denies N/V. Objective Vital Signs and I&Os Vital Signs Date Time Temp Pulse Resp B/P B/P Pulse O2 O2 Flow FiO2 Mean Ox Delivery Rate 11/04 040 98 Room Air 11/04 0000 97.7 73 29 100/70 98 Room Air 11/03 2350 98 Room Air 11/03 2054 97.6 80 18 106/67 99 Room Air 11/03 1954 97.5 78 17 108/73 99 Room Air 11/03 1748 97 Room Air 11/03 1732 84 17 102/72 97 Room Air 11/03 1533 97.4 86 16 100/68 98 Room Air Intake & Output 11/04 1600 11/04 0400 11/03 1600 11/03 0400 11/02 1600 11/02 0400 Intake Total 1284 1740 Output Total 1400 1100 Balance -116 640 Intake, IV 804 1500 Intake, Oral 480 240 Output, Stool 600 300 Output, Urine 800 800 Patient 128 lb 120 lb Weight Weight Bed scale Reported by Patient Measurement Method Physical Exam: NAD VS as above Lungs: clear CV: no rub Abd: nontender Exts: 2+ edema Results Pertinent Lab Results: Laboratory Tests 11/04 11/04 11/04 0600 0300 0300 Chemistry Sodium (137 - 145 mmol/L) 120 L 122 L Potassium (3.5 - 5.1 mmol/L) 3.1 L Chloride (98 - 107 mmol/L) 84 L Carbon Dioxide (22 - 30 mmol/L) 24 Anion Gap (5 - 16) 13 BUN (7 - 17 mg/dL) 55 H Creatinine (0.5 - 1.0 mg/dL) 1.9 H Estimated GFR (>60 ml/min) 27 L Glucose (65 - 99 mg/dL) 111 H Uric Acid (2.5 - 6.2 mg/dL) 8.4 H Calcium (8.4 - 10.2 mg/dL) 8.4 Phosphorus (2.5 - 4.5 mg/dL) 5.4 H Magnesium (1.6 - 2.3 mg/dL) 1.8 Total Bilirubin (0.2 - 1.3 mg/dL) 1.7 H AST (14 - 36 U/L) 49 H ALT (9 - 52 U/L) 57 H Albumin (3.5 - 5.0 g/dL) 3.6 Triglycerides (<150 mg/dL) 237 H Cholesterol (<200 MG/DL) 153 LDL Cholesterol, Calc (65 - 129 mg/dL) 56 L HDL Cholesterol (40 - 60 mg/dL) 50 Cholesterol/HDL Ratio (0.00 - 4.23 %) 3 Cortisol AM Sample (4.46 - 22.7 ug/dL) 16.2 Hematology CBC w Diff MAN DIFF ORDERED WBC (4.8 - 10.8 /CUMM) 5.2 RBC (4.20 - 5.40 /CUMM) 3.03 L Hgb (12.0 - 16.0 G/DL) 10.3 L Hct (37 - 47 %) 28.5 L MCV (81.0 - 99.0 FL) 94.3 MCH (27.0 - 31.0 PG) 33.8 H MCHC (33.0 - 37.0 G/DL) 35.9 RDW (11.5 - 14.5 %) 19.0 H Plt Count (130 - 400 /CUMM) 383 MPV (7.4 - 10.4 FL) 7.4 Gran % (42.2 - 75.2 %) 62.2 Lymphocytes % (20.5 - 51.1 %) 10.8 L Monocytes % (1.7 - 9.3 %) 23.8 H Eosinophils % (0 - 5 %) 3.0 Basophils % (0.0 - 2.0 %) 0.2 Absolute Granulocytes (1.4 - 6.5 /CUMM) 3.2 Segmented Neutrophils (42.2 - 75.2 %) 59 Absolute Lymphocytes (1.2 - 3.4 /CUMM) 0.6 L Lymphocytes (20.5 - 51.1 %) 15 L Monocytes (1.7 - 9.3 %) 22 H Absolute Monocytes (0.10 - 0.60 /CUMM) 1.2 H Eosinophils (0 - 5.0 %) 4 Absolute Eosinophils (0.0 - 0.7 /CUMM) 0.2 Absolute Basophils (0.0 - 0.2 /CUMM) 0 Platelet Estimate (ADEQUATE) INCREASED Normochromic RBCs VERIFIED Anisocytosis 1+ 11/03 11/03 11/03 2330 1948 194 Chemistry Sodium (137 - 145 mmol/L) 123 L 115 *L Potassium (3.5 - 5.1 mmol/L) 3.0 L 3.5 Chloride (98 - 107 mmol/L) 86 L 83 L Carbon Dioxide (22 - 30 mmol/L) 21 L 16 L Anion Gap (5 - 16) 16 16 BUN (7 - 17 mg/dL) 58 H 63 H Creatinine (0.5 - 1.0 mg/dL) 2.1 H 2.3 H Estimated GFR (>60 ml/min) 24 L 22 L BUN/Creatinine Ratio (7 - 25 %) 27.4 H Glucose (65 - 99 mg/dL) 96 Lactic Acid (0.7 - 2.1 mmol/L) 1.6 Calcium (8.4 - 10.2 mg/dL) 8.8 Phosphorus (2.5 - 4.5 mg/dL) 4.8 H Magnesium (1.6 - 2.3 mg/dL) 1.8 1.6 Total Bilirubin (0.2 - 1.3 mg/dL) 1.9 H AST (14 - 36 U/L) 55 H ALT (9 - 52 U/L) 57 H Albumin (3.5 - 5.0 g/dL) 3.8 11/03 11/03 1730 1730 Urines Urine Color (YEL,AMB,STR) YEL Urine Clarity (CLEAR) HAZY H Urine pH (5.0 - 8.0) 6.0 Ur Specific Cameron (1.001 - 1.035) 1.025 Urine Protein (NEG,<30 MG/DL) TRACE H Urine Ketones (NEG) NEG Urine Nitrite (NEG) NEG Urine Bilirubin (NEG) NEG Urine Urobilinogen (0.1 - 1.0 EU/dl) 0.2 Ur Leukocyte Esterase (NEG) MOD H Ur Microscopic SEDIMENT EXAMINED Urine RBC (0 - 5 /HPF) RARE Urine WBC (0 - 2 /HPF) 5-10 H Ur Epithelial Cells (NONE,FEW) FEW Urine Bacteria (NEG/NONE) FEW H Hyaline Casts (0/LPF) RARE H Urine Mucus (FEW,NONE) RARE Urine Hemoglobin (NEG) SMALL H Urine Osmolality (300 - 1000 MOSM/KG) 406 Ur Random Creatinine (mg/dL) 139.6 Ur Random Sodium (30 - 90 mmol/L) < 5 L Ur Random Potassium (mmol/L) 37.7 Fraction Sodium Excret (<1% %) 0.1 Urine Glucose (N MG/DL) NEG 11/03 1540 Chemistry Sodium (137 - 145 mmol/L) 112 *L Potassium (3.5 - 5.1 mmol/L) 3.8 Chloride (98 - 107 mmol/L) 77 L Carbon Dioxide (22 - 30 mmol/L) 14 L Anion Gap (5 - 16) 21 H BUN (7 - 17 mg/dL) 71 H Creatinine (0.5 - 1.0 mg/dL) 2.7 H Estimated GFR (>60 ml/min) 18 L BUN/Creatinine Ratio (7 - 25 %) 26.3 H Glucose (65 - 99 mg/dL) 134 H Serum Osmolality (285 - 295 MOSM/KG) 268 L Lactic Acid (0.7 - 2.1 mmol/L) 3.2 H Uric Acid (2.5 - 6.2 mg/dL) 10.8 H Calcium (8.4 - 10.2 mg/dL) 9.3 Total Bilirubin (0.2 - 1.3 mg/dL) 2.0 H AST (14 - 36 U/L) 63 H ALT (9 - 52 U/L) 67 H Alkaline Phosphatase (<127 U/L) 130 H Total Protein (6.3 - 8.2 g/dL) 7.6 Albumin (3.5 - 5.0 g/dL) 5.0 Globulin (1.9 - 4.2 gm/dL) 2.6 Albumin/Globulin Ratio (1.1 - 2.2 %) 1.9 Lipase (23 - 300 U/L) 406 H TSH (0.270 - 4.200 uIU/mL) 2.020 Free T4 (0.64 - 1.79 ng/dL) 1.64 Hematology CBC w Diff NO MAN DIFF REQ WBC (4.8 - 10.8 /CUMM) 6.8 RBC (4.20 - 5.40 /CUMM) 3.76 L Hgb (12.0 - 16.0 G/DL) 12.3 Hct (37 - 47 %) 35.2 L MCV (81.0 - 99.0 FL) 93.6 MCH (27.0 - 31.0 PG) 32.6 H MCHC (33.0 - 37.0 G/DL) 34.8 RDW (11.5 - 14.5 %) 19.9 H Plt Count (130 - 400 /CUMM) 566 H MPV (7.4 - 10.4 FL) 7.0 L Gran % (42.2 - 75.2 %) 71.2 Lymphocytes % (20.5 - 51.1 %) 9.3 L Monocytes % (1.7 - 9.3 %) 18.2 H Eosinophils % (0 - 5 %) 1.0 Basophils % (0.0 - 2.0 %) 0.3 Absolute Granulocytes (1.4 - 6.5 /CUMM) 4.8 Absolute Lymphocytes (1.2 - 3.4 /CUMM) 0.6 L Absolute Monocytes (0.10 - 0.60 /CUMM) 1.2 H Absolute Eosinophils (0.0 - 0.7 /CUMM) 0.1 Absolute Basophils (0.0 - 0.2 /CUMM) 0
--- NOTE | 2017-11-04 11:41 | PN- Resident CRCU ---
Subjective HPI/CRCU Issues: Patient was admitted yesterday and feels much better now. She denies any chest pain, shortness of breath, or other symptoms at this time. She is a little hungry. Objective Vital Signs & I&O Last 8 Hrs of Vitals and I&O: Vital Signs Date Time Temp Pulse Resp B/P B/P Pulse O2 O2 Flow FiO2 Mean Ox Delivery Rate 11/04 0400 98 Room Air 11/04 0000 97.7 73 29 100/70 98 Room Air 11/03 2350 98 Room Air 11/03 2054 97.6 80 18 106/67 99 Room Air 11/03 1954 97.5 78 17 108/73 99 Room Air 11/03 1748 97 Room Air 11/03 1732 84 17 102/72 97 Room Air 11/03 1533 97.4 86 16 100/68 98 Room Air Intake & Output 11/04 1600 11/04 0800 11/04 0000 Intake Total 1284 1740 Output Total 1400 1100 Balance -116 640 Intake, IV 804 1500 Intake, Oral 480 240 Output, Stool 600 300 Output, Urine 800 800 Patient 57.878 kg Weight Weight Bed scale Measurement Method Exam General Appearance: well developed/nourished, no apparent distress, alert Respiratory: normal breath sounds Cardiovascular: regular rate/rhythm Gastrointestinal: normal bowel sounds Extremities: no edema Current Medications: Current Medications Sig/Riana Start time Last Medication Dose Route Stop Time Status Admin Acetaminophen 650 MG Q6P PRN 11/03 1814 AC PO Acetaminophen 1,000 MG Q6P PRN 11/03 1815 AC 11/04 IV 0211 Desmopressin Acetate 1 MCG ONCE ONE 11/04 0045 CAN SC 11/04 0046 Dextrose/Water 1,000 ML Q6H 11/04 0100 AC 11/04 IV 11/04 1259 0715 Heparin Sodium 5,000 UNIT Q8 11/03 2242 AC 11/04 (Porcine) SC 0521 Lorazepam 0 .STK-MED ONE 11/03 1916 DC PO Lorazepam 0.5 MG ONE ONE 11/03 1914 DC 11/03 PO 11/03 Magnesium Chloride 64 MG ONCE ONE 11/03 2345 DC 11/04 PO 11/03 234 0145 Potassium Chloride 60 MEQ ONCE ONE 11/04 0500 DC 11/04 PO 11/04 0501 0521 Sodium Chloride 1,000 ML Q6H 11/03 1900 DC 11/03 IV 1918 Sodium Chloride 1,000 ML BOLUS ONE 11/03 1730 DC 11/03 IV 11/03 1829 1811 Impression/Plan Impression/Problem List Impression: Ms. Alcantara is a 57-year-old middle-aged female with significant history of locally advanced rectal carcinoma status post resection and ileostomy, currently on chemotherapy with xaledo presented to ER after found to have abnormal labs including profound hypotonic hypovolemic hyponatremia now slowly resolving, ASTON that is improving, and transaminitis. Plan: #Hypotonic hypovolemic hyponatremia - asymptomatic -Likely acute from dehydration and excessive free water intake. Serum osm 268, urine osm 406, urine Na <5. received a litre of fluid bolus in ER. -Monitor sodium every 4 hours -Neurochecks Q1hr - due to concern of CPM with overcorrection -Na correction not to exceed 8mEq in 24hrs -Hydrate with DW @ 150ml/hr for now -Nephrology following -If sodium trends upward, give 1 mcg of DDAVP #ASTON/transaminitis -BUN/creatinine ratio 26 likely prerenal azotemia Cr 0.7 at baseline. -Hydration with NS @ 100ml/hr -Renal ultrasound was normal -Liver ultrasound #History of locally advanced rectal carcinoma s/p anterior resection with ileostomy bag in situ -Patient is currently on Xaledo for around 3 cycles -Holding treatment for now DVT prophylaxis with heparin Regular diet with fluid restriction Full code Problem List: 1. ASTON (acute kidney injury) Pain Ratin Tomorrow's Labs & Rationales: icu bundle Plan DVT/Prophylaxis: mechanical, pharmacological
--- NOTE | 2017-11-04 14:50 | ULTRASOUND REPORT ---
EXAMINATION: US ABDOMEN LIMITED CLINICAL INFORMATION: Transaminitis. COMPARISON: CT scan of the chest, abdomen and pelvis 06/12/2017. TECHNIQUE: Real-time imaging of the right upper quadrant abdominal viscera. FINDINGS: PANCREAS: Normal. LIVER: The liver demonstrates normal size, contour and echogenicity. No focal lesion or intrahepatic biliary duct dilatation. GALLBLADDER: The gallbladder is not visualized, and may be contracted. The patient 8 at 8:00 AM. COMMON BILE DUCT: Normal in caliber measuring 0.5cm in diameter. RIGHT KIDNEY: There is no hydronephrosis. No renal calculi or focal parenchymal lesions. The kidney measures 9.4 cm in maximum dimension. FREE FLUID: None. IMPRESSION: 1. The liver appears normal. 2. The gallbladder is not visualized, and may be contracted as the patient had eaten before the study.
[2017-11-04 16:00] VITALS: BP 90/60
[2017-11-05] VITALS: BP 98/60
[2017-11-05 03:36] LABS: ABSOLUTE BASOPHIL COUNT 0 /CUMM (0.0-0.2); ABSOLUTE EOSINOPHIL COUNT 0.1 /CUMM (0.0-0.7); ABSOLUTE GRANULOCYTE CT 5.3 /CUMM (1.4-6.5); ABSOLUTE LYMPH COUNT 0.4 /CUMM (1.2-3.4); ABSOLUTE MONOCYTE COUNT 1.2 /CUMM (0.10-0.60); BASOPHIL % 0.1 % (0.0-2.0); EOSINOPHIL % 0.9 % (0-5); GRANULOCYTE % 76.1 % (42.2-75.2); HEMATOCRIT 32.6 % (37-47); MEAN CORPUSCULAR HGB 33.4 PG (27.0-31.0); MEAN CORPUSCULAR HGB CONC 35.2 G/DL (33.0-37.0); MEAN CORPUSCULAR VOLUME 94.8 FL (81.0-99.0); MEAN PLATELET VOLUME 7.4 FL (7.4-10.4); PLATELET COUNT 367 /CUMM (130-400); RBC DISTRIBUTION WIDTH 20.3 % (11.5-14.5); RED BLOOD CELL CT 3.44 /CUMM (4.20-5.40)
--- NOTE | 2017-11-05 07:28 | PN- Oncology ---
Subjective Subjective: Complaining of burning on urination otherwise 12 point review of systems unchanged Objective Vital Signs and I&Os Vital Signs Date Time Temp Pulse Resp B/P B/P Pulse O2 O2 Flow FiO2 Mean Ox Delivery Rate 11/05 0000 98.0 78 18 98/60 100 Room Air Room Air 11/04 1600 97.0 60 20 90/60 94 Room Air 11/04 0800 97.6 70 20 104/76 98 Room Air Intake & Output 11/05 0811/05 0000 11/04 1600 11/04 0811/04 0000 11/03 1600 Intake Total 601 826 7491 1284 1740 Output Total 1100 1900 3340 1400 1100 Balance -200 -1470 -1940 -116 640 Intake, IV 700 250 053 610 5192 Intake, Oral 200 180 800 480 240 Output, Stool 700 1400 1600 600 300 Output, Urine 032 980 1925 800 800 Patient 128 lb 120 lb Weight Weight Bed scale Reported by Patient Measurement Method Gen.: in NAD ENT: Sclera anicteric Chest: Normal respiratory effort, clear breath sounds Cor: RRR, no extra sounds Abdomen: Soft, bowel sounds present, no tenderness, no rebound Extremities: Without clubbing, cyanosis, or edema Neurology: Alert and oriented 3, complaining of burning on urination otherwise 12 point review of systems unchanged Current Medications: Current Medications Sig/Riana Start time Last Medication Dose Route Stop Time Status Admin Acetaminophen 650 MG Q6P PRN 11/03 1814 AC PO Acetaminophen 1,000 MG Q6P PRN 11/03 1815 AC 11/04 IV 0211 Dextrose/Water 1,000 ML Q13H 11/04 2330 AC 11/04 IV 2346 Dextrose/Water 1,000 ML Q6H 11/04 0100 DC 11/04 IV 11/04 1259 0715 Heparin Sodium 5,000 UNIT Q8 11/03 2242 AC 11/05 (Porcine) SC 0631 Ondansetron HCl 4 MG ONCE ONE 11/05 0500 DC 11/05 IV 11/05 0501 0456 Ondansetron HCl 0 .STK-MED ONE 11/05 0456 DC .ROUTE Potassium Chloride 20 MEQ ONCE ONE 11/05 0800 CAN PO 11/05 0801 Potassium Chloride 20 MEQ ONCE ONE 11/05 0630 CAN PO 11/05 0631 Potassium Chloride 40 MEQ ONCE ONE 11/05 0500 DC PO 11/05 0501 Potassium Chloride 20 MEQ Q1H 11/05 0500 DC 11/05 IV 11/05 0601 0631 Potassium Chloride 0 .STK-MED ONE 11/05 0451 DC PO Potassium Chloride 0 .STK-MED ONE 11/05 0447 CAN PO Potassium Chloride 40 MEQ ONCE ONE 11/05 0445 DC PO 11/05 0446 Sodium Chloride 500 ML .Q2H 11/04 2200 DC 11/04 IV 2200 Results Last 24 Hours of Lab Results: Laboratory Tests 11/05 11/05 11/05 0700 0315 0040 Chemistry Sodium (137 - 145 mmol/L) Pending 128 L 129 L Potassium (3.5 - 5.1 mmol/L) 3.3 L Chloride (98 - 107 mmol/L) 90 L Carbon Dioxide (22 - 30 mmol/L) 25 Anion Gap (5 - 16) 13 BUN (7 - 17 mg/dL) 40 H Creatinine (0.5 - 1.0 mg/dL) 1.2 H Estimated GFR (>60 ml/min) 46 L Glucose (65 - 99 mg/dL) 108 H Calcium (8.4 - 10.2 mg/dL) 9.1 Phosphorus (2.5 - 4.5 mg/dL) 5.0 H Magnesium (1.6 - 2.3 mg/dL) 2.1 Total Bilirubin (0.2 - 1.3 mg/dL) 1.3 AST (14 - 36 U/L) 43 H ALT (9 - 52 U/L) 53 H Albumin (3.5 - 5.0 g/dL) 4.3 Hematology CBC w Diff NO MAN DIFF REQ WBC (4.8 - 10.8 /CUMM) 7.0 RBC (4.20 - 5.40 /CUMM) 3.44 L Hgb (12.0 - 16.0 G/DL) 11.5 L Hct (37 - 47 %) 32.6 L MCV (81.0 - 99.0 FL) 94.8 MCH (27.0 - 31.0 PG) 33.4 H MCHC (33.0 - 37.0 G/DL) 35.2 RDW (11.5 - 14.5 %) 20.3 H Plt Count (130 - 400 /CUMM) 367 MPV (7.4 - 10.4 FL) 7.4 Gran % (42.2 - 75.2 %) 76.1 H Lymphocytes % (20.5 - 51.1 %) 6.1 L Monocytes % (1.7 - 9.3 %) 16.8 H Eosinophils % (0 - 5 %) 0.9 Basophils % (0.0 - 2.0 %) 0.1 Absolute Granulocytes (1.4 - 6.5 /CUMM) 5.3 Absolute Lymphocytes (1.2 - 3.4 /CUMM) 0.4 L Absolute Monocytes (0.10 - 0.60 /CUMM) 1.2 H Absolute Eosinophils (0.0 - 0.7 /CUMM) 0.1 Absolute Basophils (0.0 - 0.2 /CUMM) 0 11/04 11/04 11/04 11/04 2215 1800 1400 1300 Chemistry Sodium (137 - 145 mmol/L) 129 L 125 L Cancelled 121 L Potassium (3.5 - 5.1 mmol/L) 3.2 L Chloride (98 - 107 mmol/L) 84 L Carbon Dioxide (22 - 30 mmol/L) 25 Anion Gap (5 - 16) 12 BUN (7 - 17 mg/dL) 45 H Creatinine (0.5 - 1.0 mg/dL) 1.4 H Estimated GFR (>60 ml/min) 39 L Glucose (65 - 99 mg/dL) 129 H Calcium (8.4 - 10.2 mg/dL) 8.9 Phosphorus (2.5 - 4.5 mg/dL) 4.1 Magnesium (1.6 - 2.3 mg/dL) 1.9 Total Bilirubin (0.2 - 1.3 mg/dL) 1.7 H AST (14 - 36 U/L) 50 H ALT (9 - 52 U/L) 57 H Albumin (3.5 - 5.0 g/dL) 4.0 Amylase (30 - 110 U/L) 104 Lipase (23 - 300 U/L) 516 H Assessment/Plan Assessment/Recommendations: 1. Metabolic-metabolicmarked improvement in sodium and creatinine 2. Rectal cancer-I have asked the patient to hold off on returning to [facility] until I see her in the office after discharge
--- NOTE | 2017-11-05 07:50 | PN- Resident CRCU ---
See Addendum Subjective HPI/CRCU Issues: Patient said she felt feverish last night and is also developed urinary symptoms including frequency and dysuria. She also had a little bit of vomiting associated with taking the potassium pill. Otherwise, no chest pain or shortness of breath. She feels a little better this morning. Objective Vital Signs & I&O Last 8 Hrs of Vitals and I&O: Intake & Output 11/05 0800 Intake Total 900 Output Total 1100 Balance -200 Intake, IV 700 Intake, Oral 200 Output, Stool 700 Output, Urine 400 Exam General Appearance: well developed/nourished, no apparent distress, alert, awake , comfortable Respiratory: normal breath sounds Cardiovascular: regular rate/rhythm Gastrointestinal: normal bowel sounds, soft Extremities: normal inspection Current Medications: Current Medications Sig/Riana Start time Last Medication Dose Route Stop Time Status Admin Acetaminophen 650 MG Q6P PRN 11/03 181 AC PO Acetaminophen 1,000 MG Q6P PRN 11/03 1815 AC 11/04 IV 0211 Dextrose/Water 1,000 ML Q13H 11/04 2330 AC 11/04 IV 2346 Dextrose/Water 1,000 ML Q6H 11/04 0100 DC 11/04 IV 11/04 1259 0715 Heparin Sodium 5,000 UNIT Q8 11/03 2242 AC 11/05 (Porcine) SC 0631 Ondansetron HCl 4 MG ONCE ONE 11/05 0500 DC 11/05 IV 11/05 0501 0456 Ondansetron HCl 0 .STK-MED ONE 11/05 0456 DC .ROUTE Potassium Chloride 20 MEQ ONCE ONE 11/05 0800 CAN PO 11/05 0801 Potassium Chloride 20 MEQ ONCE ONE 11/05 0630 CAN PO 11/05 0631 Potassium Chloride 40 MEQ ONCE ONE 11/05 0500 DC PO 11/05 0501 Potassium Chloride 20 MEQ Q1H 11/05 0500 DC 11/05 IV 11/05 0601 0631 Potassium Chloride 0 .STK-MED ONE 11/05 0451 DC PO Potassium Chloride 0 .STK-MED ONE 11/05 0447 CAN PO Potassium Chloride 40 MEQ ONCE ONE 11/05 0445 DC PO 11/05 0446 Sodium Chloride 500 ML .Q2H 11/04 2200 DC 11/04 IV 2200 Impression/Plan Impression/Problem List Impression: Ms. Alcantara is a 57-year-old female with past medical history of locally advanced rectal carcinoma status post resection and ileostomy, currently on chemotherapy with capecitabine who presented with profound hypotonic hypovolemic hyponatremia, ASTON likely prerenal in nature, and transaminitis. She is improving. Plan: #Hypotonic hypovolemic hyponatremia - asymptomatic -Likely acute from dehydration and excessive free water intake. Serum osm 268, urine osm 406, urine Na <5. received a litre of fluid bolus in ER. -Monitor sodium every 4 hours -Neurochecks Q1hr - due to concern of CPM with overcorrection -Na correction not to exceed 8mEq in 24hrs -Nephrology following -Currently on D5 1/2NS 75mL/hr -If sodium trends upward, give 1 mcg of DDAVP #ASTON/transaminitis -BUN/creatinine ratio 26 likely prerenal azotemia -Cr 0.7 at baseline. -Renal ultrasound was normal -Liver ultrasound was normal -Improving Cr #History of locally advanced rectal carcinoma s/p anterior resection with ileostomy bag in situ -Patient is currently on capecitabine for3 cycles -Holding treatment for now per oncology DVT prophylaxis with heparin Heart healthy diet with fluid restriction Full code Problem List: 1. Hyponatremia Pain Ratin Tomorrow's Labs & Rationales: icu bundle Plan DVT/Prophylaxis: mechanical, pharmacological
[2017-11-05 08:00] VITALS: BP 96/70
--- NOTE | 2017-11-05 08:42 | PN- Nephrology ---
Assessment/Plan Nephrology Assessment: Hypovolemic hyponatremia, sodium correcting at acceptable rate. ASTON from volume depletion much better. Suggestion: Continue D5W as has tendnecy to correct somewhat quickly. If we cannot slow ostomy output needs to use some electrolyte solution to replace as outpatient such as pedilyte. Subjective Subjective: Feeling well although states still has a lot of ostomy output. Also with burning on urination, Sosa just discontinued. Objective Vital Signs and I&Os Vital Signs Date Time Temp Pulse Resp B/P B/P Pulse O2 O2 Flow FiO2 Mean Ox Delivery Rate 11/05 0000 98.0 78 18 98/60 100 Room Air Room Air 11/04 1600 97.0 60 20 90/60 94 Room Air Intake & Output 11/05 1600 11/05 0400 11/04 1600 11/04 0400 11/03 1600 11/03 0400 Intake Total 727 780 7936 1740 Output Total 1100 1900 4740 1100 Balance -200 -1470 -2056 640 Intake, IV 145 637 3844 1500 Intake, Oral 391 025 1096 240 Output, Stool 700 1400 2200 300 Output, Urine 589 662 1495 800 Patient 128 lb 120 lb Weight Weight Bed scale Reported by Patient Measurement Method Physical Exam: NAD VS as above Lungs: clear CV: no rub Abd: nontender Exts: no edema Neuro : A&O Current Medications: Current Medications Sig/Riana Start time Last Medication Dose Route Stop Time Status Admin Acetaminophen 650 MG Q6P PRN 11/03 181 AC PO Acetaminophen 1,000 MG Q6P PRN 11/03 1815 AC 11/04 IV 0211 Dextrose/Water 1,000 ML Q13H 11/04 2330 AC 11/04 IV 2346 Dextrose/Water 1,000 ML Q6H 11/04 0100 DC 11/04 IV 11/04 1259 0715 Heparin Sodium 5,000 UNIT Q8 11/03 2242 AC 11/05 (Porcine) SC 0631 Ondansetron HCl 4 MG ONCE ONE 11/05 0500 DC 11/05 IV 11/05 0501 0456 Ondansetron HCl 0 .STK-MED ONE 11/05 0456 DC .ROUTE Potassium Chloride 20 MEQ ONCE ONE 11/05 0800 CAN PO 11/05 0801 Potassium Chloride 20 MEQ ONCE ONE 11/05 0630 CAN PO 11/05 0631 Potassium Chloride 40 MEQ ONCE ONE 11/05 0500 DC PO 11/05 0501 Potassium Chloride 20 MEQ Q1H 11/05 0500 DC 11/05 IV 11/05 0601 0631 Potassium Chloride 0 .STK-MED ONE 11/05 0451 DC PO Potassium Chloride 0 .STK-MED ONE 11/05 0447 CAN PO Potassium Chloride 40 MEQ ONCE ONE 11/05 0445 DC PO 11/05 0446 Sodium Chloride 500 ML .Q2H 11/04 2200 DC 11/04 IV 2200 Results Pertinent Lab Results: Laboratory Tests 11/05 11/05 11/05 11/04 0700 0315 0040 2215 Chemistry Sodium (137 - 145 mmol/L) 128 L 128 L 129 L 129 L Potassium (3.5 - 5.1 mmol/L) 3.3 L Chloride (98 - 107 mmol/L) 90 L Carbon Dioxide (22 - 30 mmol/L) 25 Anion Gap (5 - 16) 13 BUN (7 - 17 mg/dL) 40 H Creatinine (0.5 - 1.0 mg/dL) 1.2 H Estimated GFR (>60 ml/min) 46 L Glucose (65 - 99 mg/dL) 108 H Calcium (8.4 - 10.2 mg/dL) 9.1 Phosphorus (2.5 - 4.5 mg/dL) 5.0 H Magnesium (1.6 - 2.3 mg/dL) 2.1 Total Bilirubin (0.2 - 1.3 mg/dL) 1.3 AST (14 - 36 U/L) 43 H ALT (9 - 52 U/L) 53 H Albumin (3.5 - 5.0 g/dL) 4.3 Hematology CBC w Diff NO MAN DIFF REQ WBC (4.8 - 10.8 /CUMM) 7.0 RBC (4.20 - 5.40 /CUMM) 3.44 L Hgb (12.0 - 16.0 G/DL) 11.5 L Hct (37 - 47 %) 32.6 L MCV (81.0 - 99.0 FL) 94.8 MCH (27.0 - 31.0 PG) 33.4 H MCHC (33.0 - 37.0 G/DL) 35.2 RDW (11.5 - 14.5 %) 20.3 H Plt Count (130 - 400 /CUMM) 367 MPV (7.4 - 10.4 FL) 7.4 Gran % (42.2 - 75.2 %) 76.1 H Lymphocytes % (20.5 - 51.1 %) 6.1 L Monocytes % (1.7 - 9.3 %) 16.8 H Eosinophils % (0 - 5 %) 0.9 Basophils % (0.0 - 2.0 %) 0.1 Absolute Granulocytes (1.4 - 6.5 /CUMM) 5.3 Absolute Lymphocytes (1.2 - 3.4 /CUMM) 0.4 L Absolute Monocytes (0.10 - 0.60 /CUMM) 1.2 H Absolute Eosinophils (0.0 - 0.7 /CUMM) 0.1 Absolute Basophils (0.0 - 0.2 /CUMM) 0 11/04 11/04 11/04 11/04 11/04 1800 1400 1300 0600 0300 Chemistry Sodium (137 - 145 mmol/L) 125 L Cancelled 121 L 120 L Potassium (3.5 - 5.1 mmol/L) 3.2 L Chloride (98 - 107 mmol/L) 84 L Carbon Dioxide (22 - 30 mmol/L) 25 Anion Gap (5 - 16) 12 BUN (7 - 17 mg/dL) 45 H Creatinine (0.5 - 1.0 mg/dL) 1.4 H Estimated GFR (>60 ml/min) 39 L Glucose (65 - 99 mg/dL) 129 H Uric Acid (2.5 - 6.2 mg/dL) 8.4 H Calcium (8.4 - 10.2 mg/dL) 8.9 Phosphorus (2.5 - 4.5 mg/dL) 4.1 Magnesium (1.6 - 2.3 mg/dL) 1.9 Total Bilirubin (0.2 - 1.3 mg/dL) 1.7 H AST (14 - 36 U/L) 50 H ALT (9 - 52 U/L) 57 H Albumin (3.5 - 5.0 g/dL) 4.0 Triglycerides (<150 mg/dL) 237 H Cholesterol (<200 MG/DL) 153 LDL Cholesterol, Calc (65 - 129 mg/dL) 56 L HDL Cholesterol (40 - 60 mg/dL) 50 Cholesterol/HDL Ratio (0.00 - 4.23 %) 3 Amylase (30 - 110 U/L) 104 Lipase (23 - 300 U/L) 516 H Cortisol AM Sample (4.46 - 22.7 ug/dL) 16.2 11/04 11/03 11/03 0300 2330 1948 Chemistry Sodium (137 - 145 mmol/L) 122 L 123 L Potassium (3.5 - 5.1 mmol/L) 3.1 L 3.0 L Chloride (98 - 107 mmol/L) 84 L 86 L Carbon Dioxide (22 - 30 mmol/L) 24 21 L Anion Gap (5 - 16) 13 16 BUN (7 - 17 mg/dL) 55 H 58 H Creatinine (0.5 - 1.0 mg/dL) 1.9 H 2.1 H Estimated GFR (>60 ml/min) 27 L 24 L Glucose (65 - 99 mg/dL) 111 H 96 Lactic Acid (0.7 - 2.1 mmol/L) 1.6 Calcium (8.4 - 10.2 mg/dL) 8.4 8.8 Phosphorus (2.5 - 4.5 mg/dL) 5.4 H 4.8 H Magnesium (1.6 - 2.3 mg/dL) 1.8 1.8 Total Bilirubin (0.2 - 1.3 mg/dL) 1.7 H 1.9 H AST (14 - 36 U/L) 49 H 55 H ALT (9 - 52 U/L) 57 H 57 H Albumin (3.5 - 5.0 g/dL) 3.6 3.8 Hematology CBC w Diff MAN DIFF ORDERED WBC (4.8 - 10.8 /CUMM) 5.2 RBC (4.20 - 5.40 /CUMM) 3.03 L Hgb (12.0 - 16.0 G/DL) 10.3 L Hct (37 - 47 %) 28.5 L MCV (81.0 - 99.0 FL) 94.3 MCH (27.0 - 31.0 PG) 33.8 H MCHC (33.0 - 37.0 G/DL) 35.9 RDW (11.5 - 14.5 %) 19.0 H Plt Count (130 - 400 /CUMM) 383 MPV (7.4 - 10.4 FL) 7.4 Gran % (42.2 - 75.2 %) 62.2 Lymphocytes % (20.5 - 51.1 %) 10.8 L Monocytes % (1.7 - 9.3 %) 23.8 H Eosinophils % (0 - 5 %) 3.0 Basophils % (0.0 - 2.0 %) 0.2 Absolute Granulocytes (1.4 - 6.5 /CUMM) 3.2 Segmented Neutrophils (42.2 - 75.2 %) 59 Absolute Lymphocytes (1.2 - 3.4 /CUMM) 0.6 L Lymphocytes (20.5 - 51.1 %) 15 L Monocytes (1.7 - 9.3 %) 22 H Absolute Monocytes (0.10 - 0.60 /CUMM) 1.2 H Eosinophils (0 - 5.0 %) 4 Absolute Eosinophils (0.0 - 0.7 /CUMM) 0.2 Absolute Basophils (0.0 - 0.2 /CUMM) 0 Platelet Estimate (ADEQUATE) INCREASED Normochromic RBCs VERIFIED Anisocytosis 1+ 11/03 1730 1730 Chemistry Sodium (137 - 145 mmol/L) 115 *L Potassium (3.5 - 5.1 mmol/L) 3.5 Chloride (98 - 107 mmol/L) 83 L Carbon Dioxide (22 - 30 mmol/L) 16 L Anion Gap (5 - 16) 16 BUN (7 - 17 mg/dL) 63 H Creatinine (0.5 - 1.0 mg/dL) 2.3 H Estimated GFR (>60 ml/min) 22 L BUN/Creatinine Ratio (7 - 25 %) 27.4 H Magnesium (1.6 - 2.3 mg/dL) 1.6 Urines Urine Color (YEL,AMB,STR) YEL Urine Clarity (CLEAR) HAZY H Urine pH (5.0 - 8.0) 6.0 Ur Specific [place] (1.001 - 1.035) 1.025 Urine Protein (NEG,<30 MG/DL) TRACE H Urine Ketones (NEG) NEG Urine Nitrite (NEG) NEG Urine Bilirubin (NEG) NEG Urine Urobilinogen (0.1 - 1.0 EU/dl) 0.2 Ur Leukocyte Esterase (NEG) MOD H Ur Microscopic SEDIMENT EXAMINED Urine RBC (0 - 5 /HPF) RARE Urine WBC (0 - 2 /HPF) 5-10 H Ur Epithelial Cells (NONE,FEW) FEW Urine Bacteria (NEG/NONE) FEW H Hyaline Casts (0/LPF) RARE H Urine Mucus (FEW,NONE) RARE Urine Hemoglobin (NEG) SMALL H Urine Osmolality (300 - 1000 MOSM/KG) 406 Ur Random Creatinine (mg/dL) 139.6 Ur Random Sodium (30 - 90 mmol/L) < 5 L Ur Random Potassium (mmol/L) 37.7 Fraction Sodium Excret (<1% %) 0.1 Urine Glucose (N MG/DL) NEG 11/03 1540 Chemistry Sodium (137 - 145 mmol/L) 112 *L Potassium (3.5 - 5.1 mmol/L) 3.8 Chloride (98 - 107 mmol/L) 77 L Carbon Dioxide (22 - 30 mmol/L) 14 L Anion Gap (5 - 16) 21 H BUN (7 - 17 mg/dL) 71 H Creatinine (0.5 - 1.0 mg/dL) 2.7 H Estimated GFR (>60 ml/min) 18 L BUN/Creatinine Ratio (7 - 25 %) 26.3 H Glucose (65 - 99 mg/dL) 134 H Serum Osmolality (285 - 295 MOSM/KG) 268 L Lactic Acid (0.7 - 2.1 mmol/L) 3.2 H Uric Acid (2.5 - 6.2 mg/dL) 10.8 H Calcium (8.4 - 10.2 mg/dL) 9.3 Total Bilirubin (0.2 - 1.3 mg/dL) 2.0 H AST (14 - 36 U/L) 63 H ALT (9 - 52 U/L) 67 H Alkaline Phosphatase (<127 U/L) 130 H Total Protein (6.3 - 8.2 g/dL) 7.6 Albumin (3.5 - 5.0 g/dL) 5.0 Globulin (1.9 - 4.2 gm/dL) 2.6 Albumin/Globulin Ratio (1.1 - 2.2 %) 1.9 Lipase (23 - 300 U/L) 406 H TSH (0.270 - 4.200 uIU/mL) 2.020 Free T4 (0.64 - 1.79 ng/dL) 1.64 Hematology CBC w Diff NO MAN DIFF REQ WBC (4.8 - 10.8 /CUMM) 6.8 RBC (4.20 - 5.40 /CUMM) 3.76 L Hgb (12.0 - 16.0 G/DL) 12.3 Hct (37 - 47 %) 35.2 L MCV (81.0 - 99.0 FL) 93.6 MCH (27.0 - 31.0 PG) 32.6 H MCHC (33.0 - 37.0 G/DL) 34.8 RDW (11.5 - 14.5 %) 19.9 H Plt Count (130 - 400 /CUMM) 566 H MPV (7.4 - 10.4 FL) 7.0 L Gran % (42.2 - 75.2 %) 71.2 Lymphocytes % (20.5 - 51.1 %) 9.3 L Monocytes % (1.7 - 9.3 %) 18.2 H Eosinophils % (0 - 5 %) 1.0 Basophils % (0.0 - 2.0 %) 0.3 Absolute Granulocytes (1.4 - 6.5 /CUMM) 4.8 Absolute Lymphocytes (1.2 - 3.4 /CUMM) 0.6 L Absolute Monocytes (0.10 - 0.60 /CUMM) 1.2 H Absolute Eosinophils (0.0 - 0.7 /CUMM) 0.1 Absolute Basophils (0.0 - 0.2 /CUMM) 0
[2017-11-05 12:04] VITALS: BP 96/62
[2017-11-05 16:00] VITALS: BP 100/60
[2017-11-05 22:08] VITALS: BP 90/60
[2017-11-05 22:23] VITALS: BP 98/60
[2017-11-06 06:41] VITALS: BP 104/70
--- NOTE | 2017-11-06 07:12 | Transfer of Care Summary ---
Hospital Course Course Hospital Course: Ms. Alcantara is a 57-year-old female with past medical history of locally advanced rectal carcinoma status post resection and ileostomy, currently on chemotherapy with capecitabine who presented with profound hypotonic hypovolemic hyponatremia, ASTON likely prerenal in nature, and transaminitis. She was admitted to the ICU, placed on fluid restriction, and sodium was monitored very closely. Nephrology was consulted. The patient's sodium was noted to correct a little too quickly so she was placed on D5 water yesterday per nephrology. Sodium was continued to be monitored every 6 hours yesterday. Patient was also noted to have ASTON and transaminitis that are both improving. Her statin is currently on hold. Renal and liver ultrasound were normal. Oncology has also been following, we have been holding her chemotherapy. She is currently not on any drips besides IV fluids, has IV peripheral line, on heart healthy diet with fluid restriction. Assessment/Plan: Plan: #Hypotonic hypovolemic hyponatremia - asymptomatic -Likely acute from dehydration and excessive free water intake. -Monitor sodium every 6 hours -Na correction not to exceed 8mEq in 24hrs -Nephrology following -Currently on D5W -If sodium trends upward, CAN give 1 mcg of DDAVP #ASTON/transaminitis -BUN/creatinine ratio 26 likely prerenal azotemia -Cr 0.7 at baseline. -Renal ultrasound was normal -Liver ultrasound was normal -Improving Cr #History of locally advanced rectal carcinoma s/p anterior resection with ileostomy bag in situ -Patient is currently on capecitabine for3 cycles -Holding treatment for now per oncology DVT prophylaxis with heparin Heart healthy diet with fluid restriction Full code
--- NOTE | 2017-11-06 08:08 | PN- Housestaff ---
Agustín Lopez 11/06/17 0807: Subjective Follow-up For: Asymptomatic hypotonic hypovolemic hyponatremia ASTON Transaminitis h/o locally advanced rectal carcinoma s/p anterior resection with ileostomy bag in situ Subjective: Pt seen and examined this am. She is afebrile. She feels a bit unsteady and dizzy, though is AAOx3, cooperative. Talkative. She is normotensive, offers no other complains. Critical value of K noted, replenished. Will follow up with a repeat at 10 pm to replenish as needed. Review of Systems Constitutional: Reports: see HPI. Objective Last 24 Hrs of Vital Signs/I&O Vital Signs Date Time Temp Pulse Resp B/P B/P Pulse O2 O2 Flow FiO2 Mean Ox Delivery Rate 11/06 1343 98.2 98 18 110/70 100 Room Air 11/06 0641 97.5 78 20 104/70 95 11/05 2223 98/60 11/05 2208 98.2 90 20 90/60 98 Room Air 11/05 2000 98 Room Air Intake & Output 11/06 1600 11/06 0800 11/06 0000 Intake Total 1080 240 360 Output Total 450 600 600 Balance 630 -360 -240 Intake, IV 600 300 Intake, Oral 480 240 60 Output, Stool 450 600 400 Output, Urine 200 Patient 128 lb Weight Physical Exam General Appearance: Alert, Oriented X3, Cooperative, No Acute Distress Cardiovascular: Regular Rate, Normal S1, Normal S2, No Murmurs Lungs: Clear to Auscultation, Normal Air Movement Abdomen: Normal Bowel Sounds, Soft, No Tenderness, Ileostomy bag noted in RLQ Current Medications: Current Medications Sig/Riana Start time Last Medication Dose Route Stop Time Status Admin Acetaminophen 650 MG Q6P PRN 11/03 1814 AC PO Acetaminophen 1,000 MG Q6P PRN 11/03 1815 AC 11/04 IV 0211 Dextrose/Water 1,000 ML Q13H 11/04 2330 AC 11/06 IV 0124 Heparin Sodium 5,000 UNIT Q8 11/03 2242 AC 11/06 (Porcine) SC 1308 Potassium Chloride 40 MEQ ONCE ONE 11/06 1800 AC PO 11/06 1801 Potassium Chloride 40 MEQ ONCE ONE 11/06 1215 DC 11/06 PO 11/06 1216 1308 Potassium Chloride 10 MEQ Q1H 11/06 1215 DC IV 11/06 1316 Last 24 Hrs of Lab/Reji Results Last 24 Hrs of Labs/Mics: Laboratory Tests 11/06/17 0924: Anion Gap 14, Estimated GFR 57 L, BUN/Creatinine Ratio 27.0 H 11/05/17 2245: 11/05/171936: Assessment/Plan Assessment: Ms. Alcantara is a 57 y/o F with PMH of CRC s/p resection and ileostomy, on chemotherapy with Xeloda, presented to the ED with complains of dizziness and lightheadness. In the ED she was found to be hypovolemic and profoundly hyponatremic, noted ASTON and transaminitis. She was admitted to the ICU for management of severe hyponatremia 2/2 dehydration and excessive free water intake. Pt was transferred to [facility] from ICU for continued monitoring after improvement of her sodium levels. She is now able to ambulate. She is currently on GEN MED with the following issues: #PROBLEM LIST #Hypovolemic hyponatremia 2/2 excessive free water intake and acute dehydration, improving Likely acute from dehydration and excessive free water intake. Latest Na was 126. She is fluid restricted. Nephrology is following, currently at D5W. -Continue to monitor Na -Currently on D5W @ 75 cc/hr #ASTON/transaminitis Improving, likely prerenal azotemia pointing towards dehydration. Back to 1.0 from 1.2 yesterday. Downward trend. Patient had a renal and liver ultrasound which demonstrated no acute pathology. -Continue to monitor BEP #History of locally advanced rectal carcinoma s/p anterior resection with ileostomy bag in situ -Patient is currently on capecitabine for 3 cycles -Holding treatment for now per oncology -Oncology following DVT prophylaxis Heparin Heart healthy diet with fluid restriction FULL CODE Problem List: 1. ASTON (acute kidney injury) 2. Hyponatremia Pain Ratin Pain Location: n/a Pain Goal: Remain pain free Pain Plan: as indicated Tomorrow's Labs & Rationales: Paul Contreras MD 11/06/172054: Attending MD Review Statement Attending Statement Attending MD Statement: examined this patient, discuss w/resident/PA/TRIPLE VALVE MECHANIC, agreed w/resident/PA/TRIPLE VALVE MECHANIC, reviewed EMR data (avail), discussed with nursing, discussed with case mgmt, amended to note Attending Assessment/Plan: The patient was seen and discussed with resident. Transferred out of ICU. Na today decreased slightly 126 and potassium low (2.7). The patient feels weak and has not ambulated much as of yet. Will keep in hospital and replete K and follow Na. Nephrology input appreciated.
--- NOTE | 2017-11-06 11:08 | PN- Nephrology ---
Assessment/Plan Nephrology Assessment: Hyponatremia better, no new labs this AM. Suggestion: At this point doesn't need free water to try and slow rate of Na correction. Await this AM labs. Unclear if she is taking adequate po to keep up with ostomy output. Told her she could use Pedialyte at home for volume replacement as has more Na. Today's creatinine pending but was better yesterday. Subjective Subjective: Still having a lot of ostomy output. No dizzy epsiodes. Objective Vital Signs and I&Os Vital Signs Date Time Temp Pulse Resp B/P B/P Pulse O2 O2 Flow FiO2 Mean Ox Delivery Rate 11/06 0641 97.5 78 20 104/70 95 11/05 2223 98/60 11/05 2208 98.2 90 20 90/60 98 Room Air 11/05 2000 98 Room Air 11/05 1600 95 Room Air 11/05 1600 97.9 84 18 100/60 95 Room Air 11/05 1204 98.5 20 96/62 Intake & Output 11/06 1600 11/06 0400 11/05 1600 11/05 0400 11/04 1600 11/04 0400 Intake Total 560 214 3499 430 2684 1740 Output Total 421 566 5265 1900 4740 1100 Balance -360 -240 -555 -1470 -2055 640 Intake, IV 300 2437 403 9932 1500 Intake, Oral 240 60 648 069 5532 240 Number 250 Bowel Movements Output, Stool 617 937 2743 1400 2200 300 Output, Urine 200 206 400 6690 800 Patient 128 lb Weight Weight Bed scale Measurement Method Physical Exam: NAD VS as above Lungs: clear CV: no rub Abd: nontender Exts: no edema Neuro : A&O Current Medications: Current Medications Sig/Riana Start time Last Medication Dose Route Stop Time Status Admin Acetaminophen 650 MG Q6P PRN 11/03 1814 AC PO Acetaminophen 1,000 MG Q6P PRN 11/03 181 AC 11/04 IV 0211 Dextrose/Water 1,000 ML Q13H 11/04 2330 AC 11/06 IV 0124 Heparin Sodium 5,000 UNIT Q8 11/03 2241 AC 11/06 (Porcine) SC 0521 Results Pertinent Lab Results: Laboratory Tests 11/06 11/05 11/05 11/05 11/05 0924 2245 1937 1300 0700 Chemistry Sodium (137 - 145 mmol/L) Pending 126 L 128 L Cancelled 128 L Potassium Pending Chloride Pending Carbon Dioxide Pending Anion Gap Pending BUN Pending Creatinine Pending BUN/Creatinine Ratio Pending 11/05 11/05 11/04 11/04 0315 0040 2215 1800 Chemistry Sodium (137 - 145 mmol/L) 128 L 129 L 129 L 125 L Potassium (3.5 - 5.1 mmol/L) 3.3 L Chloride (98 - 107 mmol/L) 90 L Carbon Dioxide (22 - 30 mmol/L) 25 Anion Gap (5 - 16) 13 BUN (7 - 17 mg/dL) 40 H Creatinine (0.5 - 1.0 mg/dL) 1.2 H Estimated GFR (>60 ml/min) 46 L Glucose (65 - 99 mg/dL) 108 H Calcium (8.4 - 10.2 mg/dL) 9.1 Phosphorus (2.5 - 4.5 mg/dL) 5.0 H Magnesium (1.6 - 2.3 mg/dL) 2.1 Total Bilirubin (0.2 - 1.3 mg/dL) 1.3 AST (14 - 36 U/L) 43 H ALT (9 - 52 U/L) 53 H Albumin (3.5 - 5.0 g/dL) 4.3 Hematology CBC w Diff NO MAN DIFF REQ WBC (4.8 - 10.8 /CUMM) 7.0 RBC (4.20 - 5.40 /CUMM) 3.44 L Hgb (12.0 - 16.0 G/DL) 11.5 L Hct (37 - 47 %) 32.6 L MCV (81.0 - 99.0 FL) 94.8 MCH (27.0 - 31.0 PG) 33.4 H MCHC (33.0 - 37.0 G/DL) 35.2 RDW (11.5 - 14.5 %) 20.3 H Plt Count (130 - 400 /CUMM) 367 MPV (7.4 - 10.4 FL) 7.4 Gran % (42.2 - 75.2 %) 76.1 H Lymphocytes % (20.5 - 51.1 %) 6.1 L Monocytes % (1.7 - 9.3 %) 16.8 H Eosinophils % (0 - 5 %) 0.9 Basophils % (0.0 - 2.0 %) 0.1 Absolute Granulocytes (1.4 - 6.5 /CUMM) 5.3 Absolute Lymphocytes (1.2 - 3.4 /CUMM) 0.4 L Absolute Monocytes (0.10 - 0.60 /CUMM) 1.2 H Absolute Eosinophils (0.0 - 0.7 /CUMM) 0.1 Absolute Basophils (0.0 - 0.2 /CUMM) 0 11/04 11/04 11/04 11/04 1400 1300 0600 0300 Chemistry Sodium (137 - 145 mmol/L) Cancelled 121 L 120 L Potassium (3.5 - 5.1 mmol/L) 3.2 L Chloride (98 - 107 mmol/L) 84 L Carbon Dioxide (22 - 30 mmol/L) 25 Anion Gap (5 - 16) 12 BUN (7 - 17 mg/dL) 45 H Creatinine (0.5 - 1.0 mg/dL) 1.4 H Estimated GFR (>60 ml/min) 39 L Glucose (65 - 99 mg/dL) 129 H Uric Acid (2.5 - 6.2 mg/dL) 8.4 H Calcium (8.4 - 10.2 mg/dL) 8.9 Phosphorus (2.5 - 4.5 mg/dL) 4.1 Magnesium (1.6 - 2.3 mg/dL) 1.9 Total Bilirubin (0.2 - 1.3 mg/dL) 1.7 H AST (14 - 36 U/L) 50 H ALT (9 - 52 U/L) 57 H Albumin (3.5 - 5.0 g/dL) 4.0 Triglycerides (<150 mg/dL) 237 H Cholesterol (<200 MG/DL) 153 LDL Cholesterol, Calc (65 - 129 mg/dL) 56 L HDL Cholesterol (40 - 60 mg/dL) 50 Cholesterol/HDL Ratio (0.00 - 4.23 %) 3 Amylase (30 - 110 U/L) 104 Lipase (23 - 300 U/L) 516 H Cortisol AM Sample (4.46 - 22.7 ug/dL) 16.2 11/04 11/03 11/03 0300 2330 1948 Chemistry Sodium (137 - 145 mmol/L) 122 L 123 L Potassium (3.5 - 5.1 mmol/L) 3.1 L 3.0 L Chloride (98 - 107 mmol/L) 84 L 86 L Carbon Dioxide (22 - 30 mmol/L) 24 21 L Anion Gap (5 - 16) 13 16 BUN (7 - 17 mg/dL) 55 H 58 H Creatinine (0.5 - 1.0 mg/dL) 1.9 H 2.1 H Estimated GFR (>60 ml/min) 27 L 24 L Glucose (65 - 99 mg/dL) 111 H 96 Lactic Acid (0.7 - 2.1 mmol/L) 1.6 Calcium (8.4 - 10.2 mg/dL) 8.4 8.8 Phosphorus (2.5 - 4.5 mg/dL) 5.4 H 4.8 H Magnesium (1.6 - 2.3 mg/dL) 1.8 1.8 Total Bilirubin (0.2 - 1.3 mg/dL) 1.7 H 1.9 H AST (14 - 36 U/L) 49 H 55 H ALT (9 - 52 U/L) 57 H 57 H Albumin (3.5 - 5.0 g/dL) 3.6 3.8 Hematology CBC w Diff MAN DIFF ORDERED WBC (4.8 - 10.8 /CUMM) 5.2 RBC (4.20 - 5.40 /CUMM) 3.03 L Hgb (12.0 - 16.0 G/DL) 10.3 L Hct (37 - 47 %) 28.5 L MCV (81.0 - 99.0 FL) 94.3 MCH (27.0 - 31.0 PG) 33.8 H MCHC (33.0 - 37.0 G/DL) 35.9 RDW (11.5 - 14.5 %) 19.0 H Plt Count (130 - 400 /CUMM) 383 MPV (7.4 - 10.4 FL) 7.4 Gran % (42.2 - 75.2 %) 62.2 Lymphocytes % (20.5 - 51.1 %) 10.8 L Monocytes % (1.7 - 9.3 %) 23.8 H Eosinophils % (0 - 5 %) 3.0 Basophils % (0.0 - 2.0 %) 0.2 Absolute Granulocytes (1.4 - 6.5 /CUMM) 3.2 Segmented Neutrophils (42.2 - 75.2 %) 59 Absolute Lymphocytes (1.2 - 3.4 /CUMM) 0.6 L Lymphocytes (20.5 - 51.1 %) 15 L Monocytes (1.7 - 9.3 %) 22 H Absolute Monocytes (0.10 - 0.60 /CUMM) 1.2 H Eosinophils (0 - 5.0 %) 4 Absolute Eosinophils (0.0 - 0.7 /CUMM) 0.2 Absolute Basophils (0.0 - 0.2 /CUMM) 0 Platelet Estimate (ADEQUATE) INCREASED Normochromic RBCs VERIFIED Anisocytosis 1+ 11/03 1730 1730 Chemistry Sodium (137 - 145 mmol/L) 115 *L Potassium (3.5 - 5.1 mmol/L) 3.5 Chloride (98 - 107 mmol/L) 83 L Carbon Dioxide (22 - 30 mmol/L) 16 L Anion Gap (5 - 16) 16 BUN (7 - 17 mg/dL) 63 H Creatinine (0.5 - 1.0 mg/dL) 2.3 H Estimated GFR (>60 ml/min) 22 L BUN/Creatinine Ratio (7 - 25 %) 27.4 H Magnesium (1.6 - 2.3 mg/dL) 1.6 Urines Urine Color (YEL,AMB,STR) YEL Urine Clarity (CLEAR) HAZY H Urine pH (5.0 - 8.0) 6.0 Ur Specific [place] (1.001 - 1.035) 1.025 Urine Protein (NEG,<30 MG/DL) TRACE H Urine Ketones (NEG) NEG Urine Nitrite (NEG) NEG Urine Bilirubin (NEG) NEG Urine Urobilinogen (0.1 - 1.0 EU/dl) 0.2 Ur Leukocyte Esterase (NEG) MOD H Ur Microscopic SEDIMENT EXAMINED Urine RBC (0 - 5 /HPF) RARE Urine WBC (0 - 2 /HPF) 5-10 H Ur Epithelial Cells (NONE,FEW) FEW Urine Bacteria (NEG/NONE) FEW H Hyaline Casts (0/LPF) RARE H Urine Mucus (FEW,NONE) RARE Urine Hemoglobin (NEG) SMALL H Urine Osmolality (300 - 1000 MOSM/KG) 406 Ur Random Creatinine (mg/dL) 139.6 Ur Random Sodium (30 - 90 mmol/L) < 5 L Ur Random Potassium (mmol/L) 37.7 Fraction Sodium Excret (<1% %) 0.1 Urine Glucose (N MG/DL) NEG 08/28 1540 Chemistry Sodium (137 - 145 mmol/L) 112 *L Potassium (3.5 - 5.1 mmol/L) 3.8 Chloride (98 - 107 mmol/L) 77 L Carbon Dioxide (22 - 30 mmol/L) 14 L Anion Gap (5 - 16) 21 H BUN (7 - 17 mg/dL) 71 H Creatinine (0.5 - 1.0 mg/dL) 2.7 H Estimated GFR (>60 ml/min) 18 L BUN/Creatinine Ratio (7 - 25 %) 26.3 H Glucose (65 - 99 mg/dL) 134 H Serum Osmolality (285 - 295 MOSM/KG) 268 L Lactic Acid (0.7 - 2.1 mmol/L) 3.2 H Uric Acid (2.5 - 6.2 mg/dL) 10.8 H Calcium (8.4 - 10.2 mg/dL) 9.3 Total Bilirubin (0.2 - 1.3 mg/dL) 2.0 H AST (14 - 36 U/L) 63 H ALT (9 - 52 U/L) 67 H Alkaline Phosphatase (<127 U/L) 130 H Total Protein (6.3 - 8.2 g/dL) 7.6 Albumin (3.5 - 5.0 g/dL) 5.0 Globulin (1.9 - 4.2 gm/dL) 2.6 Albumin/Globulin Ratio (1.1 - 2.2 %) 1.9 Lipase (23 - 300 U/L) 406 H TSH (0.270 - 4.200 uIU/mL) 2.020 Free T4 (0.64 - 1.79 ng/dL) 1.64 Hematology CBC w Diff NO MAN DIFF REQ WBC (4.8 - 10.8 /CUMM) 6.8 RBC (4.20 - 5.40 /CUMM) 3.76 L Hgb (12.0 - 16.0 G/DL) 12.3 Hct (37 - 47 %) 35.2 L MCV (81.0 - 99.0 FL) 93.6 MCH (27.0 - 31.0 PG) 32.6 H MCHC (33.0 - 37.0 G/DL) 34.8 RDW (11.5 - 14.5 %) 19.9 H Plt Count (130 - 400 /CUMM) 566 H MPV (7.4 - 10.4 FL) 7.0 L Gran % (42.2 - 75.2 %) 71.2 Lymphocytes % (20.5 - 51.1 %) 9.3 L Monocytes % (1.7 - 9.3 %) 18.2 H Eosinophils % (0 - 5 %) 1.0 Basophils % (0.0 - 2.0 %) 0.3 Absolute Granulocytes (1.4 - 6.5 /CUMM) 4.8 Absolute Lymphocytes (1.2 - 3.4 /CUMM) 0.6 L Absolute Monocytes (0.10 - 0.60 /CUMM) 1.2 H Absolute Eosinophils (0.0 - 0.7 /CUMM) 0.1 Absolute Basophils (0.0 - 0.2 /CUMM) 0
--- NOTE | 2017-11-06 12:28 | PN- Student ---
Subjective Subjective: Pt seen and examined this am. She reports improvement with dizziness and lightheadedness. Pt reports slight anxiety and is managing with breathing exercises. She is AAOx3, afebrile, normotensive, and breathing comfortable on room air. She notes that feet feel swollen, but there was no pedal edema and 3+ DP pulse. Pt reports that she drove herself to [place] prior to admission. ROS: Constitutional: Reports change in sleep (since chemotherapy), fatigue Objective Objective: Current Medications Sig/Riana Start time Last Medication Dose Stop Time Status Admin Acetaminophen 650 MG Q6P PRN 11/03 1815 AC (Tylenol) Acetaminophen 1,000 MG Q6P PRN 11/03 1815 AC 11/04 (Ofirmev) 0211 Dextrose/Water 1,000 ML Q13H 11/04 2330 AC 11/06 (D5W 1000) 0124 Heparin Sodium 5,000 UNIT Q8 11/03 2242 AC 11/06 (Porcine) 0521 Intake & Output 11/06 1600 11/06 0800 11/06 0000 Intake Total 240 360 Output Total 600 600 Balance -360 -240 Intake, IV 300 Intake, Oral 240 60 Output, Stool 600 400 Output, Urine 200 Physical Exam General Appearance: Alert, Oriented X3, Cooperative, No Acute Distress Lungs: Clear to Ausculation, Normal Air movement Cardiovascular: Regular Rate and rhythm. Normal S1, S2, No murmurs, no pedal edema, 3+ DP pulse Abdomen: Normal Bowel Sounds, Soft, No tenderness, Ileostomy bag in RLQ Results Results: Laboratory Tests 11/06 11/05 11/05 0924 2245 1937 Chemistry Sodium (137 - 145 mmol/L) 126 L 126 L 128 L Potassium (3.5 - 5.1 mmol/L) 2.7 *L Chloride (98 - 107 mmol/L) 89 L Carbon Dioxide (22 - 30 mmol/L) 23 Anion Gap (5 - 16) 14 BUN (7 - 17 mg/dL) 27 H Creatinine (0.5 - 1.0 mg/dL) 1.0 Estimated GFR (>60 ml/min) 57 L BUN/Creatinine Ratio (7 - 25 %) 27.0 H Assessment/Plan Assessment: Ms. Alcantara is a 57yo F with PMH of colorectal carcinoma status post resection and ileostomy, on chemotherapy with Xeloda, presenting with hypovolemic hyponatremia, ASTON, and transaminitis. Pt was transferred to [facility] from ICU for monitoring. Pt reports dizziness and lightheadedness which has improved and pt is able to ambulate. Assessment: # hypovolemic hyponatremia Possibly due to excess free water intake. Currently on IV D5W on cardiac diet with fluid restriction. - f/u Na levels # ASTON/transaminitis Possible prerenal azotemia. Latest Cr 1.0 # History of colorectal carcinoma s/p resection with ileostomy bag Chemotherapy on hold. Plan: # hypovolemic hyponatremia - Recommended pt use pedialyte when home - nephrology consult prior to discharge Eosinophils % 3.0, Basophils % 0.2, Absolute Granulocytes 3.2, Segmented Neutrophils 59, Absolute Lymphocytes 0.6 L, Lymphocytes 15 L, Monocytes 22 H, Absolute Monocytes 1.2 H, Eosinophils 4, Absolute Eosinophils 0.2, Absolute Basophils 0, Platelet Estimate INCREASED, Normochromic RBCs VERIFIED, Anisocytosis 1+ 11/03/17 2330: Anion Gap 16, Estimated GFR 24 L, Glucose 96, Calcium 8.8, Phosphorus 4.8 H, Magnesium 1.8, Total Bilirubin 1.9 H, AST 55 H, ALT 57 H, Albumin 3.8 11/03/171947: Lactic Acid 1.6 11/03/17 194: Anion Gap 16, Estimated GFR 22 L, BUN/Creatinine Ratio 27.4 H, Magnesium 1.6 11/03/17 1730: Urine Color YEL, Urine Clarity HAZY H, Urine pH 6.0, Ur Specific [place] 1.025, Urine Protein TRACE H, Urine Ketones NEG, Urine Nitrite NEG, Urine Bilirubin NEG, Urine Urobilinogen 0.2, Ur Leukocyte Esterase MOD H, Ur Microscopic SEDIMENT EXAMINED, Urine RBC RARE, Urine WBC 5-10 H, Ur Epithelial Cells FEW, Urine Bacteria FEW H, Hyaline Casts RARE H, Urine Mucus RARE, Urine Hemoglobin SMALL H, Urine Glucose NEG 11/03/17 1730: Urine Osmolality 406, Ur Random Creatinine 139.6, Ur Random Sodium < 5 L, Ur Random Potassium 37.7, Fraction Sodium Excret 0.1 11/03/17 1540: Anion Gap 21 H, Estimated GFR 18 L, BUN/Creatinine Ratio 26.3 H, Glucose 134 H, Serum Osmolality 268 L, Lactic Acid 3.2 H, Uric Acid 10.8 H, Calcium 9.3, Total Bilirubin 2.0 H, AST 63 H, ALT 67 H, Alkaline Phosphatase 130 H, Total Protein 7.6, Albumin 5.0, Globulin 2.6, Albumin/Globulin Ratio 1.9, Lipase 406 H, TSH 2.020, Free T4 1.64, CBC w Diff NO MAN DIFF REQ, RBC 3.76 L, MCV 93.6, MCH 32.6 H, MCHC 34.8, RDW 19.9 H, MPV 7.0 L, Gran % 71.2, Lymphocytes % 9.3 L, Monocytes % 18.2 H, Eosinophils % 1.0, Basophils % 0.3, Absolute Granulocytes 4.8, Absolute Lymphocytes 0.6 L, Absolute Monocytes 1.2 H, Absolute Eosinophils 0.1, Absolute Basophils 0 Microbiology 11/03 2299 UPPER RESP: Surveillance Culture - COMP 11/03 2299 GI: Surveillance Culture - COMP 11/03 2022 URINE ROUT: Urine Culture - COMP Assessment/Plan Assessment: Ms. Alcantara is a 57yo F with PMH of colorectal carcinoma status post resection and ileostomy, on chemotherapy with Xeloda, presenting with hypovolemic hyponatremia, ASTON, and transaminitis. Pt was transferred to [facility] from ICU for monitoring. Pt reports dizziness and lightheadedness which has improved and pt is able to ambulate. Assessment: # hypovolemic hyponatremia Possibly due to excess free water intake. Currently on IV D5W on cardiac diet with fluid restriction. - f/u Na levels # ASTON/transaminitis Cr 1.0 # History of colorectal carcinoma s/p resection with ileostomy bag Chemotherapy on hold. Plan: # hypovolemic hyponatremia - Recommended pt use pedialyte when home - nephrology consult prior to discharge
[2017-11-06 13:43] VITALS: BP 110/70
--- NOTE | 2017-11-06 14:32 | Patient Discharge Instructions ---
Discharge Instructions General Discharge Information You were seen/treated for: Hyponatremia Acute Kidney Injury Special Instructions: Please follow up with your PCP within 1 week regarding this hospital admission. Please CONTINUE 1500 CC FLUID RESTRICTION Please take pedialyte or powerade. Have repeat bloodwork done w ith your PCP within 1 week. If you continue to have headaches, nausea, vomiting or unsteadiness please contact your PCP inmmediately or return to our emergency department. PLEASE FOLLOW UP WITH DR. ESPINOSA AND DR. GORE OUTPATIENT IN 1-2 WEEKS Diet Continue normal diet: Yes Limit DAILY fluid amt to mls: 1500 Activity Full Activity/No Limits: Yes Acute Coronary Syndrome Inclusion Criteria At DC or during hospital stay patient has or had the following: ACS DIAGNOSIS No Discharge Core Measures Meds if any: Prescribed or Continued at Discharge Meds if any: NOT Prescribed or Continued at Discharge Congestive Heart Failure Inclusion Criteria At DC or during hospital stay patient has or had the following: CHF DIAGNOSIS No Discharge Core Measures Meds if any: Prescribed or Continued at Discharge Meds if any: NOT Prescribed or Continued at Discharge Cerebrovascular accident Inclusion Criteria At DC or during hospital stay patient has or had the following: CVA/TIA Diagnosis No Discharge Core Measures Meds if any: Prescribed or Continued at Discharge Meds if any: NOT Prescribed or Continued at Discharge Venous thromboembolism Inclusion Criteria VTE Diagnosis No VTE Type NONE VTE Confirmed by (Test) NONE Discharge Core Measures - Per Current guidelines, there needs to be overlap - treatment for the first 5 days of Warfarin therapy. - If discharged on Warfarin prior to 5 days of - overlap therapy, the patient will need to be - assessed for post discharge needs including - *Post discharge parental anticoagulation - *Warfarin and/or parental anticoagulation education - *Follow up date to check INR post discharge At least 5 days overlap therapy as Inpatient No Meds if any: Prescribed or Continued at Discharge Note: Overlap Therapy is Warfarin and Anticoagulant Meds if any: NOT Prescribed or Continued at Discharge
--- NOTE | 2017-11-06 16:25 | Discharge Summary ---
Visit Information Visit Dates Admission Date: 11/03/17 Discharge Date: 11/08/17 Hospital Course Course Attending Physician: Paul Recinos MD Primary Care Physician: Mignon TAVERA,Eliana Yee Hospital Course: Ms. Alcantara is a 57 y/o F with PMH of CRC s/p resection and ileostomy, on chemotherapy with Xeloda, who presented to the ED with complains of dizziness and lightheadness. In the ED she was found to be hypovolemic and profoundly hyponatremic (112), noted ASTON and transaminitis. She was admitted to the ICU for management of severe hyponatremia 2/2 dehydration and excessive free water intake. Sodium corrected quickly, likely indicating this as a chronic issue while on fluid restriction; she was subsequently started on D5W. With her sodium levels improving, patient able to ambulate and ASTON resolving, she was transferred to [facility] from ICU for continued monitoring of the following issues that are summarized below: #PROBLEM LIST #Hypovolemic hyponatremia 2/2 excessive free water intake and acute dehydration #ASTON/transaminitis #History of locally advanced rectal carcinoma s/p anterior resection with ileostomy bag in situ #Hypovolemic hyponatremia 2/2 excessive free water intake and acute dehydration This was likely from dehydration and excessive free water intake. Her sodium was trended q6 while in the ICU, daily while on the floors. Latest Na was 128. She was treated initially with fluid restriction but due to rapid correction was started on D5W. Nephrology followed the patient while in the ICU and in the general medicine floor. Hypokalemia was also noted (2.7 and 2.9) and was replenished; latest was 3.7. Patient's weakness and dizziness improved as the days went on, able to ambulate unassisted. She was discharged with the instruction to replenish fluids with electrolyte drinks such as Gatorade or similar supplements instead of free water. #ASTON/transaminitis Her BEP was trended while both in the ICU and in the General Floor by the primary medical team and the nephrology service. Creatinine was 2.7 on admit, likely prerenal azotemia pointing towards dehydration as the culprit. 1.1 on the latest lab. Downward trend clearly observed. Patient did have a renal and liver ultrasound which demonstrated no acute pathology. Mild transaminitis also noted on a downward trend by the time of discharge (AST: 63->43 / ALT: 67->53). #History of locally advanced rectal carcinoma s/p anterior resection with ileostomy bag in situ Oncology followed the patient during her admission. She is on her 3rd cycle of capecitabine; her medication was held as per oncology's recommendation during her admission with the instruction to follow up as an outpatient with the aims of restarting. During her stay, her DVT prophylaxis was with Heparin. Her diet was a Heart healthy diet with fluid restriction. Patient was a FULL CODE. Allergies: Coded Allergies: sulfamethoxazole (From NOVRA) (rash 10/02/17) trimethoprim (From NOVRA) (rash 10/02/17) Significant Procedures: PATIENT: JONATHAN ALCANTARA PRESENT AGE: 57 PATIENT ACCOUNT NO: [id number] : 60 LOCATION: [facility] ORDERING PHYSICIAN: Shalom Gupta DO SERVICE DATE: 11/03/17 EXAM TYPE: US - US-RENAL/KIDNEY EXAMINATION: US RETROPERITONEAL COMPLETE (RENAL) CLINICAL INFORMATION: Dizziness and lightheadedness. Acute kidney injury.. COMPARISON: CT abdomen pelvis 06/12/2017 TECHNIQUE: Real-time imaging of the kidneys and bladder. FINDINGS: RIGHT KIDNEY: 8.6 x 4.8 x 5.4 cm (SAG x AP x TRV). The kidney is normal in size, contour, and echogenicity. Renal cortical thickness is normal. No calculi or focal parenchymal lesions. No hydronephrosis. LEFT KIDNEY: 10.7 x 6.2 x 5.6 cm (SAG x AP x TRV). The kidney is normal in size, contour, and echogenicity. Renal cortical thickness is normal. No calculi or focal parenchymal lesions. No hydronephrosis. BLADDER: The bladder is decompressed and therefore not accurately evaluated. Bilateral ureteral jets are demonstrated. IMPRESSION: Unremarkable sonographic imaging of the kidneys. No renal calculi or hydronephrosis bilaterally. DICTATED BY: Wesley King MD DATE/TIME DICTATED:11/03/171815 SACK SORTER:TRISTAN DATE/TIME TRANSCRIBED:11/03/171815 CONFIDENTIAL, DO NOT COPY WITHOUT APPROPRIATE AUTHORIZATION. <Electronically signed in Other Vendor System> SIGNED BY: Wesley King MD 11/03/17 1824 PATIENT: JONATHAN ALCANTARA PRESENT AGE: 57 PATIENT ACCOUNT NO: [id number] : 60 LOCATION: [facility] ORDERING PHYSICIAN: Shalom Gupta DO SERVICE DATE: 11/03/17 EXAM TYPE: US - US-RENAL/KIDNEY EXAMINATION: US RETROPERITONEAL COMPLETE (RENAL) CLINICAL INFORMATION: Dizziness and lightheadedness. Acute kidney injury.. COMPARISON: CT abdomen pelvis 06/12/2017 TECHNIQUE: Real-time imaging of the kidneys and bladder. FINDINGS: RIGHT KIDNEY: 8.6 x 4.8 x 5.4 cm (SAG x AP x TRV). The kidney is normal in size, contour, and echogenicity. Renal cortical thickness is normal. No calculi or focal parenchymal lesions. No hydronephrosis. LEFT KIDNEY: 10.7 x 6.2 x 5.6 cm (SAG x AP x TRV). The kidney is normal in size, contour, and echogenicity. Renal cortical thickness is normal. No calculi or focal parenchymal lesions. No hydronephrosis. BLADDER: The bladder is decompressed and therefore not accurately evaluated. Bilateral ureteral jets are demonstrated. IMPRESSION: Unremarkable sonographic imaging of the kidneys. No renal calculi or hydronephrosis bilaterally. DICTATED BY: Wesley King MD DATE/TIME DICTATED:11/03/171815 SACK SORTER:TRISTAN DATE/TIME TRANSCRIBED:11/03/171815 CONFIDENTIAL, DO NOT COPY WITHOUT APPROPRIATE AUTHORIZATION. <Electronically signed in Other Vendor System> SIGNED BY: Wesley King MD 11/03/171823 Pertinent Lab Results: Na: 112 on admission - > 128 latest. K: 3.3 -> 2.7 -> 2.9->4.2 ->3.7 Disposition Summary Disposition Principal Diagnosis: Hypovolemic Hyponatremia Additional Diagnosis: ASTON/Transaminitis H/o locally advanced rectal carcinoma s/p anterior resection with ileostomy bag in situ on capecitabine Discharge Disposition: home or self care Discharge Instructions General Discharge Information Code Status: Full Code Patient's Diet: Heart Healthy Diet Patient's Activity: As tolerated. Follow-Up Instructions/Appts: Please follow up with your PCP about this hospital admission within 1 week of discharge. Please replenish your fluids with electrolyte rich drinks such as Gatorade or similar supplements. Please follow up with your oncologist with regards to restarting your medication within 2 weeks of discharge. Medications at Discharge Discharge Medications: Continue taking these medications: Prochlorperazine Maleate (Prochlorperazine Maleate) 10 MG TABLET 1 Tablet ORAL EVERY SIX HOURS as needed for nausea Comments: NOT GIVEN IN HOSPITAL Diazepam (Valium) 5 MG TABLET 1 Tablet ORAL 2 x Daily as needed as needed for anxiety Comments: NOT GIVEN IN HOSPITAL Copies To: Mignon TAVERA,Eliana Yee
[2017-11-06 23:01] VITALS: BP 90/60
[2017-11-07 06:38] VITALS: BP 90/60
--- NOTE | 2017-11-07 08:33 | PN- Housestaff ---
See Addendum Subjective Follow-up For: Asymptomatic hypotonic hypovolemic hyponatremia ASTON Transaminitis h/o locally advanced rectal carcinoma s/p anterior resection with ileostomy bag in situ Subjective: Patient seen and examined at bedside this morning. Afebrile with normal vital signs overnight. She is alert and oriented X3, cooperative and speaking well. Patient claims she does not feel as weak and dizzy as yesterday although sodium levels remain same at 126 with a normalized potassium. Patient has financial concerns about her situation in terms of her divorce, being home alone and how she will pay rent. Review of Systems Constitutional: Denies: see HPI. Objective Last 24 Hrs of Vital Signs/I&O Vital Signs Date Time Temp Pulse Resp B/P B/P Pulse O2 O2 Flow FiO2 Mean Ox Delivery Rate 11/07 08 Room Air 11/07 0638 98.8 79 20 90/60 98 Room Air 11/06 2301 98.2 78 20 90/60 100 11/06 1343 98.2 98 18 110/70 100 Room Air Intake & Output 11/07 1600 11/07 0800 11/07 0000 Intake Total 840 300 Output Total 450 700 Balance 390 -400 Intake, IV 600 300 Intake, Oral 240 Output, Stool 450 700 Physical Exam General Appearance: Alert, Oriented X3, Cooperative, No Acute Distress Skin: No Rashes, No Breakdown Cardiovascular: Regular Rate, Normal S1, Normal S2 Lungs: Clear to Auscultation, Normal Air Movement Abdomen: Normal Bowel Sounds, Soft, No Tenderness Neurological: Normal Gait, Normal Speech, Strength at 5/5 X4 Ext, Normal Tone Extremities: No Clubbing, No Cyanosis, No Edema Vascular: Normal Pulses, Pulses Symmetrical Current Medications: Current Medications Sig/Riana Start time Last Medication Dose Route Stop Time Status Admin Acetaminophen 650 MG Q6P PRN 11/03 1814 AC PO Acetaminophen 1,000 MG Q6P PRN 11/03 181 AC 11/04 IV 0211 Calcium Carbonate 500 MG DAILY 11/07 020 AC 11/07 PO 0835 Dextrose/Water 1,000 ML Q13H 11/04 2330 AC 11/07 IV 0652 Heparin Sodium 5,000 UNIT Q8 11/03 2242 AC 11/07 (Porcine) SC 0520 Potassium Chloride 40 MEQ ONCE ONE 11/06 2329 DC 11/06 PO 08/31 2331 2337 Potassium Chloride 40 MEQ ONCE ONE 11/06 2330 DC 11/06 PO 11/06 2331 2337 Potassium Chloride 40 MEQ ONCE ONE 11/06 1800 DC 11/06 PO 11/06 1801 1707 Potassium Chloride 40 MEQ ONCE ONE 11/06 1215 DC 11/06 PO 11/06 1216 1308 Potassium Chloride 10 MEQ Q1H 11/06 1215 DC IV 11/06 1316 Last 24 Hrs of Lab/Reji Results Last 24 Hrs of Labs/Mics: Laboratory Tests 11/07/17 0737: Anion Gap 12, Estimated GFR 57 L, BUN/Creatinine Ratio 30.0 H 11/06/17 2147: Anion Gap 12, Estimated GFR 51 L, BUN/Creatinine Ratio 29.1 H Assessment/Plan Assessment: Ms. Alcantara is a 57 y/o F with PMH of CRC s/p resection and ileostomy, on chemotherapy with Xeloda, presented to the ED with complains of dizziness and lightheadness. In the ED she was found to be hypovolemic and profoundly hyponatremic, noted ASTON and transaminitis. She was admitted to the ICU for management of severe hyponatremia 2/2 dehydration and excessive free water intake. Pt was transferred to [facility] from ICU for continued monitoring after improvement of her sodium levels. She is now able to ambulate. She is currently on [facility] with the following issues: PROBLEM LIST: 1. Hypovolemic hyponatremia 2/2 excessive free water intake and acute dehydration, improving 2. ASTON/Transaminitis 3. History of locally advanced rectal carcinoma s/p anterior resection with ileostomy bag in situ PLAN: * Case management in terms of financial concerns * Sodium 126 today with normalized potassium to 4.2 * Continue to monitor Na and D5W @ 75 cc/hr; patient tolerating diet well * Continue fluid restrictuions * ASTON likely prerenal from dehydration has improved to 1.0 * Nephrology has seen patient recommends pedialyte at home for volume replacement DVT prophylaxis Heparin Heart healthy diet with fluid restriction FULL CODE Problem List: 1. Hyponatremia 2. ASTON (acute kidney injury) Pain Ratin Pain Location: no pain Pain Goal: Remain pain free Pain Plan: as per pain pathway Tomorrow's Labs & Rationales: bep
[2017-11-07 13:37] VITALS: BP 90/60
[2017-11-07 21:31] VITALS: BP 92/70
[2017-11-08 07:07] VITALS: BP 98/66
--- NOTE | 2017-11-08 09:04 | PN- Housestaff ---
Juli Grahamar 11/08/17 0904: Subjective Follow-up For: Asymptomatic hypotonic hypovolemic hyponatremia ASTON Subjective: Patient seen and examined at bedside. she mentioned when I enter that she want to go home. She denies fever, chills, chest pain, palpitation, abdominal pain, diarrhea, constipation, burning micturition Review of Systems Constitutional: Reports: see HPI. Objective Last 24 Hrs of Vital Signs/I&O Vital Signs Date Time Temp Pulse Resp B/P B/P Pulse O2 O2 Flow FiO2 Mean Ox Delivery Rate 11/08 08 Room Air 11/08 0707 97.6 88 18 98/66 96 11/07 2131 97.4 87 18 92/70 99 Intake & Output 11/08 1600 11/08 0800 11/08 0000 Intake Total 400 240 562.5 Output Total 150 Balance 400 240 412.5 Intake, IV 562.5 Intake, Oral 400 240 0 Output, Stool 150 Physical Exam General Appearance: Alert, Oriented X3, Cooperative, No Acute Distress Cardiovascular: Normal S1, Normal S2 Lungs: Clear to Auscultation, Normal Air Movement Abdomen: Normal Bowel Sounds, Soft Neurological: Normal Gait, Normal Speech Assessment/Plan Assessment: Ms. Alcantara is a 57 y/o F with PMH of CRC s/p resection and ileostomy, on chemotherapy with Xeloda, presented to the ED with complains of dizziness and lightheadness. In the ED she was found to be hypovolemic and profoundly hyponatremic, noted ASTON and transaminitis. She was admitted to the ICU for management of severe hyponatremia 2/2 dehydration and excessive free water intake. Pt was transferred to [facility] from ICU for continued monitoring after improvement of her sodium levels. She is now able to ambulate. She is currently on [facility] with the following issues: Problems list: *Hypovolemic hyponatremia secondary to pre-water intake and acute dehydration *ASTON/transaminitis *Hypovolemic hyponatremia secondary to pre-water intake and acute dehydration: -Patient hyponatremia most likely secondary to dehydration and free water intake -Last sodium level is 128 -Patient is plan to discharge home today -She is oriented in time place person, no confusion. ASTON/transaminitis: -ASTON trended down patient is stable regarding ASTON *History of locally advanced rectal carcinoma s/p anterior resection with ileostomy bag in situ -Patient is currently on capecitabine for 3 cycles -Holding treatment for now per oncology -Oncology following -Patient discharged DVT prophylaxis Heparin Heart healthy diet with fluid restriction FULL CODE Problem List: 1. ASTON (acute kidney injury) 2. Hyponatremia 3. Rectal cancer Pain Ratin Pain Location: No pain Pain Goal: Remain pain free Pain Plan: Pain management pathway Tomorrow's Labs & Rationales: No labs Paul Recinos MD 11/08/17 1505: Attending MD Review Statement Attending Statement Attending MD Statement: examined this patient, discuss w/resident/PA/ROPING MACHINE TENDER, agreed w/resident/PA/ROPING MACHINE TENDER, reviewed EMR data (avail), discussed with nursing, discussed with case mgmt, amended to note Attending Assessment/Plan: The patient was seen and discussed with house staff. Serum Na 128 today (K 3.7) and patient is feeling much better. OK to discharge to home today on 1500 cc fluid restriction. Advised patient to drink Gator Aide or similar supplement instead of free water.
== END 2017-11-08 14:47 | disposition home health service (06) | DRG 469 ==
LOC: ERH 15:23 → CRI 17:26 → ERHI 17:26 → ENRESERV 18:23 → ENTRNSPT 21:18 → EDTRNSPT 21:32 → EDTRNSPTSTS 21:32 → CRI 21:37 → CMPTRNSPT 21:49 → CRI 11-04 13:26 → DELTRNSPT 11-05 19:53 → ENTRNSPT 11-05 19:57 → EDTRNSPTSTS 11-05 20:24 → EDTRNSPT 11-05 20:24 → 2NA 11-05 20:25 → CMPTRNSPT 11-05 20:33 → 2NA 11-07 13:31 → ENPENDDIS 11-08 13:43 → ENTRNSPT 11-08 14:41 → 2NA 11-08 14:47 → CMPTRNSPT 11-08 15:19
PROVIDERS: Internal Medicine; Physician Assistant Medical
DX: N17.9 Acute kidney failure, unspecified (principal); E87.1 Hypo-osmolality and hyponatremia; E86.0 Dehydration; K52.9 Noninfective gastroenteritis and colitis, unspecified; C18.9 Malignant neoplasm of colon, unspecified; E87.2 Acidosis; Z93.2 Ileostomy status; Z92.21 Personal history of antineoplastic chemotherapy; R74.0 Nonspecific elevation of levels of transaminase and lactic acid dehydrogenase [LDH]; E86.1 Hypovolemia; Z90.49 Acquired absence of other specified parts of digestive tract; Z88.1 Allergy status to other antibiotic agents; Z88.2 Allergy status to sulfonamides
CPT/HCPCS: 2NASP; 84133; 84300; CCU; 36415; 36592; 76775; 81001; 82436; 82570; 87086; 93005; 93010; J1642; J1644; J2405; J7060